=== PATIENT | female | born 1950 | race Caucasian/White ===

== ENCOUNTER 2017-05-30 13:43 | Emergency (ER) | payer MEDICARE, OTHER ==
[~2017-05-30] VITALS: Ht 134.6 cm; Wt 40.8 kg
[2017-05-30 14:02] VITALS: BP 141/61
--- NOTE | 2017-05-30 14:23 | EKG ---
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
--- NOTE | 2017-05-30 14:23 | RAD ---
EXAM: CT head without contrast. HISTORY: Multiple falls, dementia, Down syndrome. TECHNIQUE: Computed tomography of the head was performed without intravenous contrast. COMPARISON: None. FINDINGS: There is no intracranial hemorrhage. Hypoattenuation within the periventricular white matter indicates moderate chronic small vessel ischemic change. There is a chronic lacunar infarct in the left cerebellar hemisphere. Cerebral atrophy is moderate to severe with a temporal and parietal lobe predominant. The visualized paranasal sinuses appear clear. The orbits are unremarkable. The temporal bones are unremarkable. The calvarium reveals no suspicious lesions. IMPRESSION: 1. No acute intracranial findings. 2. Moderate to severe atrophy with the temporal and parietal lobe predominance. 3. Moderate chronic small vessel ischemic white matter change. *One or more of the following individualized dose reduction techniques were utilized for this examination: 1. Automated exposure control. 2. Adjustment of the mA and/or kV according to patient size. 3. Use of iterative reconstruction technique.
[2017-05-30] MEDS ORDERED: IV NORMAL SALINE 1000ML BAG 1,000 ML IV ONE (14:30)
[2017-05-30 14:38] LABS: BASO # 0.1 x10^3/uL (0.0-0.2); BASO % 1 % (0-3); EOS % 1 % (0-3); HEMATOCRIT 38.2 % (36.0-47.0); HEMOGLOBIN 12.6 g/dL (12.0-15.5); LYMPH # 1.3 x10^3/uL (1.0-4.8); LYMPH % 20 % (24-48); MEAN CORPUSCULAR HEMOGLOBIN 33 pg (25-35); MEAN CORPUSCULAR HGB CONC 33 g/dL (31-37); MEAN CORPUSCULAR VOLUME 99 fL (79-100); MONO % 7 % (0-9); NEUT % 70 % (31-73); PLATELET COUNT 175 x10^3/uL (140-400); RED BLOOD COUNT 3.86 x10^6/uL (3.50-5.40); WHITE BLOOD COUNT 6.6 x10^3/uL (4.0-11.0)
--- NOTE | 2017-05-30 15:01 | PHYS DOC ---
Past Medical History Past Medical History: Dementia, GERD, Hypothyroid Additional Past Medical Histor: downs syndrome, menieres, crohns, osteoporosis , gout, dysphagia, ckd Past Surgical History: No Surgical History Alcohol Use: None Drug Use: None Adult General Chief Complaint Chief Complaint: MECHANICAL FALL HPI HPI Patient is a 67 year old female who presents with multiple falls from prison. Pt has downs syndrome and unable to give history. Pt was reportedly hypotensive and bradycardic for EMS. This improved by the time the patient arrived to the ER. Patient is reportedly been falling multiple times in the prison, information on the falls is not available. Patient has some Mni re's disease listed as one of her primary diagnosis. Primary care physician is Dr. Rodriguez Review of Systems Review of Systems Unable to obtain due to mental abilities Current Medications Current Medications Current Medications Medications (Trade) Dose Ordered Sig/Jessee Start Time Stop Time Status Last Admin Dose Admin Ciprofloxacin (Cipro) 250 mg 1X ONCE 05/30/17 16:30 05/30/17 16:31 DC 05/30/17 16:23 250 MG Sodium Chloride 1,000 ml @ 1,000 mls/hr 1X ONCE 05/30/17 14:30 05/30/17 15:29 DC 05/30/17 14:33 1,000 MLS/HR Allergies Allergies Allergies Coded Allergies Type Severity Reaction Last Updated Verified Phenothiazines Allergy Intermediate 05/30/17 Yes lactose Allergy Intermediate 05/30/17 Yes Physical Exam Physical Exam Constitutional: small, HENT: Normocephalic, atraumatic, bilateral external ears normal, oropharynx slightly dry Eyes: PERRLA, disconguate gaze Neck: Normal range of motion, no tenderness, supple, no stridor. [] Cardiovascular:Heart rate regular with regular rhythm Lungs & Thorax: Bilateral breath sounds clear to auscultation [] Abdomen: Bowel sounds normal, soft, no tenderness, no masses, no pulsatile masses, pelvis stable Skin: Warm, dry, no erythema, no rash. [] Back: No tenderness, no CVA tenderness. [] Extremities: No tenderness, no cyanosis, no clubbing, ROM intact, no edema. inverted feet Neurologic: Alert , doesn't answer questions or follow commands well, normal motor function, no focal deficits noted. [] Current Patient Data Vital Signs Vital Signs Date Time Temp Pulse Resp B/P (MAP) Pulse Ox O2 Delivery O2 Flow Rate FiO2 05/30/17 14:02 97.9 57 20 141/61 (87) 97 Room Air 97.9 Lab Values Laboratory Tests Test 05/30/17 14:25 05/30/17 15:05 05/30/17 15:15 White Blood Count 6.6 x10^3/uL (4.0-11.0) Red Blood Count 3.86 x10^6/uL (3.50-5.40) Hemoglobin 12.6 g/dL (12.0-15.5) Hematocrit 38.2 % (36.0-47.0) Mean Corpuscular Volume 99 fL (79-100) Mean Corpuscular Hemoglobin 33 pg (25-35) Mean Corpuscular Hemoglobin Concent 33 g/dL (31-37) Red Cell Distribution Width 17.0 % (11.5-14.5) H Platelet Count 175 x10^3/uL (140-400) Neutrophils (%) (Auto) 70 % (31-73) Lymphocytes (%) (Auto) 20 % (24-48) L Monocytes (%) (Auto) 7 % (0-9) Eosinophils (%) (Auto) 1 % (0-3) Basophils (%) (Auto) 1 % (0-3) Neutrophils # (Auto) 4.6 x10^3uL (1.8-7.7) Lymphocytes # (Auto) 1.3 x10^3/uL (1.0-4.8) Monocytes # (Auto) 0.5 x10^3/uL (0.0-1.1) Eosinophils # (Auto) 0.1 x10^3/uL (0.0-0.7) Basophils # (Auto) 0.1 x10^3/uL (0.0-0.2) Lactic Acid Level 1.2 mmol/L (0.4-2.0) Thyroid Stimulating Hormone (TSH) 2.781 uIU/mL (0.358-3.74) Free Thyroxine 1.35 ng/dL (0.76-1.46) Sodium Level 143 mmol/L (136-145) Potassium Level 4.5 mmol/L (3.5-5.1) Chloride Level 106 mmol/L (98-107) Carbon Dioxide Level 30 mmol/L (21-32) Anion Gap 7 (6-14) Blood Urea Nitrogen 24 mg/dL (7-20) H Creatinine 1.8 mg/dL (0.6-1.0) H Estimated GFR (Cockcroft-Gault) 28.2 BUN/Creatinine Ratio 13 (6-20) Glucose Level 99 mg/dL (70-99) Calcium Level 9.3 mg/dL (8.5-10.1) Total Bilirubin 0.1 mg/dL (0.2-1.0) L Aspartate Amino Transferase (AST) 26 U/L (15-37) Alanine Aminotransferase (ALT) 13 U/L (14-59) L Alkaline Phosphatase 87 U/L (46-116) Total Protein 7.7 g/dL (6.4-8.2) Albumin 2.7 g/dL (3.4-5.0) L Albumin/Globulin Ratio 0.5 (1.0-1.7) L Urine Collection Type U cath Urine Color Yellow Urine Clarity Clear Urine pH 6.5 Urine Specific Dickens <=1.005 Urine Protein Negative mg/dL (NEG-TRACE) Urine Glucose (UA) Negative mg/dL (NEG) Urine Ketones (Stick) Negative mg/dL (NEG) Urine Blood Negative (NEG) Urine Nitrite Positive (NEG) Urine Bilirubin Negative (NEG) Urine Urobilinogen Dipstick 0.2 mg/dL (0.2 mg/dL) Urine Leukocyte Esterase Small (NEG) Urine RBC 0 /HPF (0-2) Urine WBC Occ /HPF (0-4) Urine Squamous Epithelial Cells Few /LPF Urine Bacteria Many /HPF (0-FEW) Laboratory Tests 05/30/17 14:25 Laboratory Tests 05/30/17 15:05 EKG EKG 61 beats per minute, sinus, normal axis, normal intervals, no ST elevation or depression appreciated, nonischemic T waves [] Radiology/Procedures Radiology/Procedures CT had: IMPRESSION: 1. No acute intracranial findings. 2. Moderate to severe atrophy with the temporal and parietal lobe predominance. 3. Moderate chronic small vessel ischemic white matter change. Course & Med Decision Making Course & Med Decision Making Pertinent Labs and Imaging studies reviewed. (See chart for details) Patient appeared in no acute distress. Lab work, urinalysis, CT head, EKG performed. She did yell out at staff for any interaction with her including when stickers were removed or placed, IV started, urinalysis obtained. Tolerated CT scan well No acute findings other than UTI. Pt given po cipro and I talked with Dr. Rodriguez , who accepted back to [place], pt dc'd with RX for cipro x 3 days. Dragon Disclaimer Dragon Disclaimer This electronic medical record was generated, in whole or in part, using a voice recognition dictation system. Departure Departure Impression: Primary Impression: Urinary tract infection Disposition: HOME, SELF-CARE Condition: STABLE Referrals: SHAISTA RODRIGUEZ MD (PCP) Scripts Ciprofloxacin Hcl (CIPRO) 250 Mg Tablet 1 TAB PO BID, #6 TAB Prov: FARZANEH LINDER MD 05/30/17 FARZANEH LINDER MD May 30, 2017 15:01
[2017-05-30 15:06] LABS: FREE T4 1.35 ng/dL (0.76-1.46)
[2017-05-30 15:16] LABS: CALCIUM 9.3 mg/dL (8.5-10.1); CREATININE 1.8 mg/dL (0.6-1.0); GFR 28.2; POTASSIUM 4.5 mmol/L (3.5-5.1)
[2017-05-30 15:24] LABS: ALBUMIN 2.7 g/dL (3.4-5.0); ALBUMIN/GLOBULIN RATIO 0.5 (1.0-1.7); TOTAL BILIRUBIN 0.1 mg/dL (0.2-1.0); TOTAL PROTEIN 7.7 g/dL (6.4-8.2)
[2017-05-30 15:36] LABS: BILIRUBIN,URINE NEGATIVE (NEG); GLUCOSE,URINE NEGATIVE (NEG); NITRITE,URINE POSITIVE (NEG); PH,URINE 6.5; PROTEIN,URINE NEGATIVE (NEG-TRACE); UROBILINOGEN,URINE 0.2 mg/dL (0.2 mg/dL)
[2017-05-30 15:51] LABS: BACTERIA,URINE MANY /HPF (0-FEW); RBC,URINE 0 /HPF (0-2); SQUAMOUS EPITHELIAL CELL,UR FEW /LPF; WBC,URINE OCC /HPF (0-4)
[2017-05-30] MEDS ORDERED: CIPR250T30 PO (16:09)
[2017-05-30] MEDS ORDERED: CIPROFLOXACIN HCL 250 MG TABLET. PO ONE (16:30)
== END 2017-05-30 16:40 | disposition home or self-care (01) ==
LOC: ER 13:43
DX: N39.0 Urinary tract infection, site not specified (principal); R29.6 Repeated falls; F03.90 Unspecified dementia, unspecified severity, without behavioral disturbance, psychotic disturbance, mood disturbance, and anxiety; E03.9 Hypothyroidism, unspecified; K21.9 Gastro-esophageal reflux disease without esophagitis; Q90.9 Down syndrome, unspecified; M81.0 Age-related osteoporosis without current pathological fracture; M10.9 Gout, unspecified; N18.9 Chronic kidney disease, unspecified; I95.9 Hypotension, unspecified; Z88.8 Allergy status to other drugs, medicaments and biological substances; Z91.011 Allergy to milk products; W18.39XA Other fall on same level, initial encounter; Y93.89 Activity, other specified; Y92.129 Unspecified place in nursing home as the place of occurrence of the external cause; Y99.8 Other external cause status
CPT/HCPCS: 36415; 70450; 80053; 81001; 83605; 84439; 84443; 85027; 87086; 93005; 96360; 96361; 99285; C1887; J7030; 87186

== ENCOUNTER 2017-06-29 09:46 | Inpatient (IN) | payer MEDICARE, OTHER ==
[~2017-06-29] VITALS: Ht 152.4 cm; Wt 42.2 kg
[2017-06-29] VITALS (15 sets, daily range): BP systolic 70–103; BP diastolic 40–57
[~2017-06-29 09:46] MED LIST: CIPR250T30 PO
[2017-06-29] MEDS ORDERED: IV NORMAL SALINE 1000ML BAG 1,000 ML IV SCH (10:00)
--- NOTE | 2017-06-29 10:20 | PHYS DOC ---
Past Medical History Past Medical History: Dementia, GERD, Hypothyroid Additional Past Medical Histor: downs syndrome, menieres, crohns, osteoporosis , gout, dysphagia, ckd Past Surgical History: No Surgical History Alcohol Use: None Drug Use: None Adult General Chief Complaint Chief Complaint: ALTERED MENTAL STATUS HPI HPI Patient is a 67 year old female who presents with oriented mental status. According to [facility] the last 2 days she's been in bed and not wanting to do much and then this morning was nonresponsive. EMS arrived and found her hypotensive and cold when they transferred her over she became more responsive. She has a past medical history of renal failure and Down syndrome. Review of Systems Review of Systems Unable to obtain Current Medications Current Medications Current Medications Medications (Trade) Dose Ordered Sig/Jessee Start Time Stop Time Status Last Admin Dose Admin Ondansetron HCl (Zofran) 4 mg PRN Q8HRS PRN 06/29/17 11:45 06/30/17 11:44 Sodium Chloride 1,000 ml @ 125 mls/hr Q8H 06/29/17 12:00 06/29/17 11:53 125 MLS/HR Allergies Allergies Allergies Coded Allergies Type Severity Reaction Last Updated Verified Phenothiazines Allergy Intermediate 05/30/17 Yes lactose Allergy Intermediate 05/30/17 Yes Physical Exam Physical Exam Constitutional: non-toxic appearance. [] HENT: Normocephalic, atraumatic, bilateral external ears normal, oropharynx moist, no oral exudates, nose normal. Dry oropharynx Eyes: PERRLA, EOMI, no discharge. [] Neck: Normal range of motion, no tenderness, no stridor. [] Cardiovascular:Heart rate regular rhythm, no murmur [] Lungs & Thorax: Bilateral breath sounds clear to auscultation [] Abdomen: Bowel sounds hypoactive, soft, no tenderness, no masses, no pulsatile masses. [] Skin: Warm, dry, no erythema, no rash. [] Back: No tenderness, no CVA tenderness. [] Extremities: No tenderness, no cyanosis, no clubbing, no edema. [] Neurologic: Alert. Current Patient Data Vital Signs Vital Signs Date Time Temp Pulse Resp B/P (MAP) Pulse Ox O2 Delivery O2 Flow Rate FiO2 06/29/17 10:36 98 26 77/58 (64) 100 06/29/17 09:46 97.7 Room Air 97.7 Lab Values Laboratory Tests Test 06/29/17 10:08 06/29/17 10:28 06/29/17 11:50 06/29/17 12:05 White Blood Count 13.1 x10^3/uL (4.0-11.0) H Red Blood Count 5.00 x10^6/uL (3.50-5.40) Hemoglobin 16.2 g/dL (12.0-15.5) H Hematocrit 51.4 % (36.0-47.0) H Mean Corpuscular Volume 103 fL (79-100) H Mean Corpuscular Hemoglobin 32 pg (25-35) Mean Corpuscular Hemoglobin Concent 32 g/dL (31-37) Red Cell Distribution Width 17.4 % (11.5-14.5) H Platelet Count 190 x10^3/uL (140-400) Neutrophils (%) (Auto) 77 % (31-73) H Lymphocytes (%) (Auto) 15 % (24-48) L Monocytes (%) (Auto) 4 % (0-9) Eosinophils (%) (Auto) 3 % (0-3) Basophils (%) (Auto) 1 % (0-3) Neutrophils # (Auto) 10.1 x10^3uL (1.8-7.7) H Lymphocytes # (Auto) 2.0 x10^3/uL (1.0-4.8) Monocytes # (Auto) 0.5 x10^3/uL (0.0-1.1) Eosinophils # (Auto) 0.4 x10^3/uL (0.0-0.7) Basophils # (Auto) 0.1 x10^3/uL (0.0-0.2) Prothrombin Time 13.7 SEC (11.7-14.0) Prothrombin Time INR 1.1 (0.8-1.1) Sodium Level 171 mmol/L (136-145) *H Potassium Level 5.1 mmol/L (3.5-5.1) Chloride Level 129 mmol/L (98-107) H Carbon Dioxide Level 29 mmol/L (21-32) Anion Gap 13 (6-14) Blood Urea Nitrogen 126 mg/dL (7-20) H Creatinine 5.7 mg/dL (0.6-1.0) H Estimated GFR (Cockcroft-Gault) 7.4 Glucose Level 105 mg/dL (70-99) H Lactic Acid Level 2.5 mmol/L (0.4-2.0) H Calcium Level 9.9 mg/dL (8.5-10.1) Magnesium Level 3.5 mg/dL (1.8-2.4) H Total Bilirubin 0.3 mg/dL (0.2-1.0) Direct Bilirubin 0.1 mg/dL (0.0-0.2) Aspartate Amino Transferase (AST) 38 U/L (15-37) H Alanine Aminotransferase (ALT) 49 U/L (14-59) Alkaline Phosphatase 140 U/L (46-116) H Creatine Kinase 97 U/L (26-192) Creatine Kinase MB (Mass) 1.3 ng/mL (0.0-3.6) Creatine Kinase MB Relative Index 1.3 % (0-4) Troponin I Quantitative < 0.017 ng/mL (0.000-0.055) KV-Dci-T-Type Natriuretic Peptide 2590 pg/mL (0-124) H Total Protein 9.6 g/dL (6.4-8.2) H Albumin 2.9 g/dL (3.4-5.0) L Lipase 252 U/L (73-393) Thyroid Stimulating Hormone (TSH) 1.071 uIU/mL (0.358-3.74) O2 Saturation 89 % (92-99) L Arterial Blood pH 7.41 (7.35-7.45) Arterial Blood pCO2 at Patient Temp 38 mmHg (35-46) Arterial Blood pO2 at Patient Temp 60 mmHg (65-108) L Arterial Blood HCO3 24 mmol/L (21-28) Arterial Blood Base Excess -1 mmol/L (-3-3) FiO2 21% Ammonia < 10 mcmol/L (11-34) L Urine Opiates Screen Neg (NEG) Urine Methadone Screen Neg (NEG) Urine Barbiturates Neg (NEG) Urine Phencyclidine Screen Neg (NEG) Urine Amphetamine/Methamphetamine Neg (NEG) Urine Benzodiazepines Screen Neg (NEG) Urine Cocaine Screen Neg (NEG) Urine Cannabinoids Screen Neg (NEG) Urine Ethyl Alcohol Neg (NEG) Laboratory Tests 06/29/17 10:08 Laboratory Tests 8/19/17 10:08 EKG EKG EKG shows sinus rhythm with a rate of [address] elevations or T- wave inversions appreciated, left axis deviation, QTC 474 ms, as interpreted by me. Radiology/Procedures Radiology/Procedures [place] [id number] IMAGING REPORT Signed PATIENT: VALERIY STOVER ACCOUNT: [id number] : 1950 LOCATION: ER AGE: 67 SEX: F EXAM STATUS: PRE ER ORD. PHYSICIAN: GREGORY MURILLO MD REASON: AMS PROCEDURE: PORTABLE CHEST 1V Indication: Altered mental status for 2 days. Technique: Supine portable chest radiograph was obtained. No comparison is available. Findings: The lungs are clear. The heart is not enlarged. The pulmonary vasculature appears prominent, likely accentuated by portable technique. Interstitium is not prominent. There is mild dextrocurvature. There is an old right rib fracture. Leads overlie the patient. Impression: Mild interstitial prominence likely related to portable technique. A mild vascular congestion cannot be completely excluded. DICTATED and SIGNED BY: KAI COLLINS MD DATE: 06/29/17 1054 CC: GREGORY MURILLO MD; MARIANN BELLE MD ~ [place] [id number] [place], [place] [id number] IMAGING REPORT Signed PATIENT: VALERIY STOVER ACCOUNT: [id number] : 1950 LOCATION: ER AGE: 67 SEX: F EXAM STATUS: PRE ER ORD. PHYSICIAN: GREGORY MURILLO MD REASON: AMS PROCEDURE: CT HEAD WO CONTRAST Indication: Altered mental status. Dementia, Down syndrome. Technique: Noncontrast CT head was obtained. Comparison is from May 30, 2017. One or more of the following individualized dose reduction techniques were utilized for this examination: 1. Automated exposure control 2. Adjustment of the mA and/or kV according to patient size 3. Use of iterative reconstruction technique Findings: Images were repeated for mild motion. There is prominence of the ventricles and sulci. The ventricles are more prominent than the sulci. Areas of decreased attenuation in the supratentorial white matter are nonspecific but most suggestive of minimal small vessel ischemic disease. There is no acute intracranial hemorrhage or extra-axial fluid collection. There is no mass effect or midline shift. There is probably an old left cerebellar infarct inferiorly. There is no CT evidence of an acute infarct. The included paranasal sinuses are clear. Mastoid air cells appear underpneumatized. There is probably cerumen in the left external auditory canal. Impression: 1. Ventricular prominence is out of proportion to the degree of sulcal prominence. This may still be related to parenchymal volume loss although normal pressure hydrocephalus also can be considered. 2. Probable small vessel ischemic disease. DICTATED and SIGNED BY: KAI COLLINS MD DATE: 06/29/17 1034 CC: GREGORY MURILLO MD; MARIANN BELLE MD ~ Impressions: Hypernatremia Acute renal failure Hypotension-improved Down syndrome Course & Med Decision Making Course & Med Decision Making Pertinent Labs and Imaging studies reviewed. (See chart for details) Patient presented with confusion that has improved with IV fluids. Her blood pressure has a map of greater than 65, chest x-ray CT head nonacute even though there are concerns of possible NPH with the CT of her head. She is severely dehydrated with hypernatremia. She is received 1 L of fluids and is improved in mentation. Spoke with Dr. Sanz who once 125 normal saline started. Patient's being admitted to Dr. Belle, with interim orders written for ICU placement. I discussed the plans with the patient's [id number] who states he has partial guardianship. She is in stable but critical condition this time be admitted ICU. Dragon Disclaimer Dragon Disclaimer This electronic medical record was generated, in whole or in part, using a voice recognition dictation system. Departure Departure Impression: Primary Impression: Hypernatremia Disposition: ADMITTED INPATIENT Admitting Physician: Mariann Belle Condition: STABLE Referrals: MARIANN BELLE MD (PCP) GREGORY MURILLO MD Jun 29, 2017 10:20
[2017-06-29 10:23] LABS: BASO # 0.1 x10^3/uL (0.0-0.2); BASO % 1 % (0-3); EOS % 3 % (0-3); HEMATOCRIT 51.4 % (36.0-47.0); HEMOGLOBIN 16.2 g/dL (12.0-15.5); LYMPH % 15 % (24-48); MEAN CORPUSCULAR HEMOGLOBIN 32 pg (25-35); MEAN CORPUSCULAR HGB CONC 32 g/dL (31-37); MEAN CORPUSCULAR VOLUME 103 fL (79-100); MONO % 4 % (0-9); NEUT % 77 % (31-73); PLATELET COUNT 190 x10^3/uL (140-400); RED CELL DISTRIBUTION WIDTH 17.4 % (11.5-14.5); WHITE BLOOD COUNT 13.1 x10^3/uL (4.0-11.0)
[2017-06-29 10:34] LABS: INR 1.1 (0.8-1.1); PROTHROMBIN TIME PATIENT 13.7 SEC (11.7-14.0)
--- NOTE | 2017-06-29 10:42 | RAD ---
Indication: Altered mental status. Dementia, Down syndrome. Technique: Noncontrast CT head was obtained. Comparison is from May 30, 2017. One or more of the following individualized dose reduction techniques were utilized for this examination: 1. Automated exposure control 2. Adjustment of the mA and/or kV according to patient size 3. Use of iterative reconstruction technique Findings: Images were repeated for mild motion. There is prominence of the ventricles and sulci. The ventricles are more prominent than the sulci. Areas of decreased attenuation in the supratentorial white matter are nonspecific but most suggestive of minimal small vessel ischemic disease. There is no acute intracranial hemorrhage or extra-axial fluid collection. There is no mass effect or midline shift. There is probably an old left cerebellar infarct inferiorly. There is no CT evidence of an acute infarct. The included paranasal sinuses are clear. Mastoid air cells appear underpneumatized. There is probably cerumen in the left external auditory canal. Impression: 1. Ventricular prominence is out of proportion to the degree of sulcal prominence. This may still be related to parenchymal volume loss although normal pressure hydrocephalus also can be considered. 2. Probable small vessel ischemic disease.
[2017-06-29 10:51] LABS: HCO3 ABG 24 mmol/L (21-28); PCO2 ABG 38 mmHg (35-46); PH ABG 7.41 (7.35-7.45); PO2 ABG 60 mmHg (65-108); SAT O2 ABG 89 % (92-99)
--- NOTE | 2017-06-29 10:59 | RAD ---
Indication: Altered mental status for 2 days. Technique: Supine portable chest radiograph was obtained. No comparison is available. Findings: The lungs are clear. The heart is not enlarged. The pulmonary vasculature appears prominent, likely accentuated by portable technique. Interstitium is not prominent. There is mild dextrocurvature. There is an old right rib fracture. Leads overlie the patient. Impression: Mild interstitial prominence likely related to portable technique. A mild vascular congestion cannot be completely excluded.
[2017-06-29 11:02] LABS: CKMB MASS 1.3 ng/mL (0.0-3.6)
[2017-06-29 11:11] LABS: ALBUMIN 2.9 g/dL (3.4-5.0); CALCIUM 9.9 mg/dL (8.5-10.1); CREATININE 5.7 mg/dL (0.6-1.0); DIRECT BILIRUBIN 0.1 mg/dL (0.0-0.2); GFR 7.4; MAGNESIUM 3.5 mg/dL (1.8-2.4); POTASSIUM 5.1 mmol/L (3.5-5.1); TOTAL BILIRUBIN 0.3 mg/dL (0.2-1.0); TOTAL PROTEIN 9.6 g/dL (6.4-8.2)
[2017-06-29] MEDS ORDERED: ONDANSETRON PF 4 MG/2 ML VIAL. IV PRN (11:45)
[2017-06-29] MEDS: IV NORMAL SALINE 1000ML BAG 1,000 ML IV SCH ×4 (11:53→14:47)
[2017-06-29] MEDS ORDERED: IV NORMAL SALINE 1000ML BAG 1,000 ML IV ONE (12:00)
--- NOTE | 2017-06-29 12:00 | EKG ---
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
[2017-06-29 12:25] LABS: BARBITURATES NEG (NEG); BENZODIAZEPINES NEG (NEG); CANNABINOIDS NEG (NEG); COCAINE NEG (NEG); METHADONE NEG (NEG); OPIATES NEG (NEG); PHENCYCLIDINE NEG (NEG)
[2017-06-29 12:31] LABS: FIO2 ABG 21%
[2017-06-29 12:32] LABS: BILIRUBIN,URINE NEGATIVE (NEG); GLUCOSE,URINE NEGATIVE (NEG); NITRITE,URINE POSITIVE (NEG); PH,URINE 5.5; PROTEIN,URINE 30 mg/dL (NEG-TRACE); UROBILINOGEN,URINE 0.2 mg/dL (0.2 mg/dL)
[2017-06-29 12:48] LABS: BACTERIA,URINE MOD /HPF (0-FEW); RBC,URINE 0 /HPF (0-2); SQUAMOUS EPITHELIAL CELL,UR MOD /LPF; WBC,URINE TNTC /HPF (0-4)
--- NOTE | 2017-06-29 13:48 | PDOC2 ---
CONSULT Date of Consult Date of Consult DATE: 06/29/17 TIME: 13:37 Reason for Consult Reason for Consult: GLORY and ^Na Referring Physician Referring Physician: Dr Belle Identification/Chief Complaint Chief Complaint AMS Problems: Source Source: Chart review, Patient History of Present Illness Reason for Visit: as dictated Social History No ALCOHOL: none Drugs: None Lives: Shelter Current Problem List Problem List Problems Medical Problems: (1) Hypernatremia Status: Acute Current Medications Current Medications Current Medications Sodium Chloride 1,000 ml @ 1,000 mls/hr Q1H IV Last administered on 06/29/17 09:55; Start 06/29/17 at 10:00; Stop 06/29/17 at 10:59; Status DC Sodium Chloride 1,000 ml @ 1,000 mls/hr 1X ONCE IV ; Start 06/29/17 at 12:00; Stop 06/29/17 at 12:59; Status Cancel Sodium Chloride 1,000 ml @ 125 mls/hr Q8H IV Last administered on 06/29/17 11 :53; Start 06/29/17 at 12:00 Ondansetron HCl (Zofran) 4 mg PRN Q8HRS PRN IV NAUSEA/VOMITING; Start 06/29/17 at 11:45; Stop 06/30/17 at 11:44 Active Scripts Active Cipro (Ciprofloxacin Hcl) 250 Mg Tablet 1 Tab PO BID Allergies Allergies: Coded Allergies: Phenothiazines (Verified Allergy, Intermediate, 05/30/17) lactose (Verified Allergy, Intermediate, 05/30/17) ROS Review of System Pt has Down's synd, and is encephalphathic - I am unable to get ROS from her Physical Exam Physical Exam General Appearance: barely Awake not Alert Oriented x 0 In no Distress; Downs Syndrome pt Eyes: VIsion Unchanged Conjunctiva Normal EN: No EN Drainage Mucous Memb. dry! Neck: no JVD no JVP Supple no Thyromegaly CVS: S1 S2 + Murmur No Gallop No Rub no Edema Resp: no Rales no Rhonchi no Acc. Muscle use GI: BAS +ve NO Bruit Non Tender Non Distended : no CVA tenderness; ? Suprapubic Tenderness SKIN: no visible Rashes Breast Exam deferred Mu.Sk: Adequate passive ROM min Muscle Atrophy Heme: Unable to palpate Obvious LAD no palp Splenomegaly NEURO: unable to assess due to AMS no asterixis Psych: ? Depressed vs Ill appearring Vital Signs Vital Signs Date Time Temp Pulse Resp B/P (MAP) Pulse Ox O2 Delivery O2 Flow Rate FiO2 06/29/17 12:30 94 19 78/51 (60) 98 06/29/17 09:46 97.7 Room Air 97.7 Assessment & Plan GLORY/ ATN - Pyelo nephritis - Current FLuid and E-lyte status does not necessitate emergent need for Dialysis. Will re-evaluate in am after adequate hydration ^Na - Isotonic IVF for now for sepsis Sepsis - Urine source - Abx as ordered, IVF per protocol Pyelonephritis - IV ABX and IVF as ordered Min ^ed Lactic Acid - Sepsis HypoTN: sepsis vs Vol dpeltion - IVF for now ^ed HGb - suspect due to Hemoconcentration Vol dpeltion - IVF as ordered Labs Labs Laboratory Tests Test 06/29/17 10:08 06/29/17 10:28 06/29/17 11:50 06/29/17 12:05 White Blood Count 13.1 x10^3/uL (4.0-11.0) Red Blood Count 5.00 x10^6/uL (3.50-5.40) Hemoglobin 16.2 g/dL (12.0-15.5) Hematocrit 51.4 % (36.0-47.0) Mean Corpuscular Volume 103 fL (79-100) Mean Corpuscular Hemoglobin 32 pg (25-35) Mean Corpuscular Hemoglobin Concent 32 g/dL (31-37) Red Cell Distribution Width 17.4 % (11.5-14.5) Platelet Count 190 x10^3/uL (140-400) Neutrophils (%) (Auto) 77 % (31-73) Lymphocytes (%) (Auto) 15 % (24-48) Monocytes (%) (Auto) 4 % (0-9) Eosinophils (%) (Auto) 3 % (0-3) Basophils (%) (Auto) 1 % (0-3) Neutrophils # (Auto) 10.1 x10^3uL (1.8-7.7) Lymphocytes # (Auto) 2.0 x10^3/uL (1.0-4.8) Monocytes # (Auto) 0.5 x10^3/uL (0.0-1.1) Eosinophils # (Auto) 0.4 x10^3/uL (0.0-0.7) Basophils # (Auto) 0.1 x10^3/uL (0.0-0.2) Prothrombin Time 13.7 SEC (11.7-14.0) Prothromb Time International Ratio 1.1 (0.8-1.1) Sodium Level 171 mmol/L (136-145) Potassium Level 5.1 mmol/L (3.5-5.1) Chloride Level 129 mmol/L (98-107) Carbon Dioxide Level 29 mmol/L (21-32) Anion Gap 13 (6-14) Blood Urea Nitrogen 126 mg/dL (7-20) Creatinine 5.7 mg/dL (0.6-1.0) Estimated GFR (Cockcroft-Gault) 7.4 Glucose Level 105 mg/dL (70-99) Lactic Acid Level 2.5 mmol/L (0.4-2.0) Calcium Level 9.9 mg/dL (8.5-10.1) Magnesium Level 3.5 mg/dL (1.8-2.4) Total Bilirubin 0.3 mg/dL (0.2-1.0) Direct Bilirubin 0.1 mg/dL (0.0-0.2) Aspartate Amino Transf (AST/SGOT) 38 U/L (15-37) Alanine Aminotransferase (ALT/SGPT) 49 U/L (14-59) Alkaline Phosphatase 140 U/L (46-116) Creatine Kinase 97 U/L (26-192) Creatine Kinase MB (Mass) 1.3 ng/mL (0.0-3.6) Creatine Kinase MB Relative Index 1.3 % (0-4) Troponin I Quantitative < 0.017 ng/mL (0.000-0.055) FG-Mtm-S-Type Natriuretic Peptide 2590 pg/mL (0-124) Total Protein 9.6 g/dL (6.4-8.2) Albumin 2.9 g/dL (3.4-5.0) Lipase 252 U/L (73-393) Thyroid Stimulating Hormone (TSH) 1.071 uIU/mL (0.358-3.74) O2 Saturation 89 % (92-99) Arterial Blood pH 7.41 (7.35-7.45) Arterial Blood pCO2 at Patient Temp 38 mmHg (35-46) Arterial Blood pO2 at Patient Temp 60 mmHg (65-108) Arterial Blood HCO3 24 mmol/L (21-28) Arterial Blood Base Excess -1 mmol/L (-3-3) FiO2 21% Ammonia < 10 mcmol/L (11-34) Urine Collection Type U cath Urine Color Yellow Urine Clarity Cloudy Urine pH 5.5 Urine Specific [place] 1.015 Urine Protein 30 mg/dL (NEG-TRACE) Urine Glucose (UA) Negative mg/dL (NEG) Urine Ketones (Stick) Negative mg/dL (NEG) Urine Blood Small (NEG) Urine Nitrite Positive (NEG) Urine Bilirubin Negative (NEG) Urine Urobilinogen Dipstick 0.2 mg/dL (0.2 mg/dL) Urine Leukocyte Esterase Large (NEG) Urine RBC 0 /HPF (0-2) Urine WBC Tntc /HPF (0-4) Urine Squamous Epithelial Cells Mod /LPF Urine Bacteria Mod /HPF (0-FEW) Urine Hyaline Casts Moderate /HPF Urine Opiates Screen Neg (NEG) Urine Methadone Screen Neg (NEG) Urine Barbiturates Neg (NEG) Urine Phencyclidine Screen Neg (NEG) Urine Amphetamine/Methamphetamine Neg (NEG) Urine Benzodiazepines Screen Neg (NEG) Urine Cocaine Screen Neg (NEG) Urine Cannabinoids Screen Neg (NEG) Urine Ethyl Alcohol Neg (NEG) Laboratory Tests Test 06/29/17 10:08 06/29/17 10:28 06/29/17 11:50 06/29/17 12:05 White Blood Count 13.1 x10^3/uL (4.0-11.0) Red Blood Count 5.00 x10^6/uL (3.50-5.40) Hemoglobin 16.2 g/dL (12.0-15.5) Hematocrit 51.4 % (36.0-47.0) Mean Corpuscular Volume 103 fL (79-100) Mean Corpuscular Hemoglobin 32 pg (25-35) Mean Corpuscular Hemoglobin Concent 32 g/dL (31-37) Red Cell Distribution Width 17.4 % (11.5-14.5) Platelet Count 190 x10^3/uL (140-400) Neutrophils (%) (Auto) 77 % (31-73) Lymphocytes (%) (Auto) 15 % (24-48) Monocytes (%) (Auto) 4 % (0-9) Eosinophils (%) (Auto) 3 % (0-3) Basophils (%) (Auto) 1 % (0-3) Neutrophils # (Auto) 10.1 x10^3uL (1.8-7.7) Lymphocytes # (Auto) 2.0 x10^3/uL (1.0-4.8) Monocytes # (Auto) 0.5 x10^3/uL (0.0-1.1) Eosinophils # (Auto) 0.4 x10^3/uL (0.0-0.7) Basophils # (Auto) 0.1 x10^3/uL (0.0-0.2) Prothrombin Time 13.7 SEC (11.7-14.0) Prothromb Time International Ratio 1.1 (0.8-1.1) Sodium Level 171 mmol/L (136-145) Potassium Level 5.1 mmol/L (3.5-5.1) Chloride Level 129 mmol/L (98-107) Carbon Dioxide Level 29 mmol/L (21-32) Anion Gap 13 (6-14) Blood Urea Nitrogen 126 mg/dL (7-20) Creatinine 5.7 mg/dL (0.6-1.0) Estimated GFR (Cockcroft-Gault) 7.4 Glucose Level 105 mg/dL (70-99) Lactic Acid Level 2.5 mmol/L (0.4-2.0) Calcium Level 9.9 mg/dL (8.5-10.1) Magnesium Level 3.5 mg/dL (1.8-2.4) Total Bilirubin 0.3 mg/dL (0.2-1.0) Direct Bilirubin 0.1 mg/dL (0.0-0.2) Aspartate Amino Transf (AST/SGOT) 38 U/L (15-37) Alanine Aminotransferase (ALT/SGPT) 49 U/L (14-59) Alkaline Phosphatase 140 U/L (46-116) Creatine Kinase 97 U/L (26-192) Creatine Kinase MB (Mass) 1.3 ng/mL (0.0-3.6) Creatine Kinase MB Relative Index 1.3 % (0-4) Troponin I Quantitative < 0.017 ng/mL (0.000-0.055) NX-Xqe-I-Type Natriuretic Peptide 2590 pg/mL (0-124) Total Protein 9.6 g/dL (6.4-8.2) Albumin 2.9 g/dL (3.4-5.0) Lipase 252 U/L (73-393) Thyroid Stimulating Hormone (TSH) 1.071 uIU/mL (0.358-3.74) O2 Saturation 89 % (92-99) Arterial Blood pH 7.41 (7.35-7.45) Arterial Blood pCO2 at Patient Temp 38 mmHg (35-46) Arterial Blood pO2 at Patient Temp 60 mmHg (65-108) Arterial Blood HCO3 24 mmol/L (21-28) Arterial Blood Base Excess -1 mmol/L (-3-3) FiO2 21% Ammonia < 10 mcmol/L (11-34) Urine Collection Type U cath Urine Color Yellow Urine Clarity Cloudy Urine pH 5.5 Urine Specific [place] 1.015 Urine Protein 30 mg/dL (NEG-TRACE) Urine Glucose (UA) Negative mg/dL (NEG) Urine Ketones (Stick) Negative mg/dL (NEG) Urine Blood Small (NEG) Urine Nitrite Positive (NEG) Urine Bilirubin Negative (NEG) Urine Urobilinogen Dipstick 0.2 mg/dL (0.2 mg/dL) Urine Leukocyte Esterase Large (NEG) Urine RBC 0 /HPF (0-2) Urine WBC Tntc /HPF (0-4) Urine Squamous Epithelial Cells Mod /LPF Urine Bacteria Mod /HPF (0-FEW) Urine Hyaline Casts Moderate /HPF Urine Opiates Screen Neg (NEG) Urine Methadone Screen Neg (NEG) Urine Barbiturates Neg (NEG) Urine Phencyclidine Screen Neg (NEG) Urine Amphetamine/Methamphetamine Neg (NEG) Urine Benzodiazepines Screen Neg (NEG) Urine Cocaine Screen Neg (NEG) Urine Cannabinoids Screen Neg (NEG) Urine Ethyl Alcohol Neg (NEG) LEWIS DUPONT MD Jun 29, 2017 13:48
[2017-06-29] MEDS ORDERED: MAGNESIUM SULFATE 2GM 50 ML IV PRN (14:00)
[2017-06-29] MEDS ORDERED: IV NORMAL SALINE 500ML BAG 500 ML IV PRN (15:00)
--- NOTE | 2017-06-29 16:00 | RAD ---
Indication: Chronic kidney disease. Dehydration. Down syndrome and Alzheimer's dementia. Technique: Renal ultrasound was performed. Exam was technically difficult, patient is not compliant. There is also poor acoustic window given body habitus. Findings: Right kidney measures at least 6.2 cm in length and the left 5.1 cm. Renal cortical echogenicity is increased. No discrete lesion is identified and there is no hydronephrosis apparent. Bladder is not evaluated secondary to Willis catheter. Impression: Atrophic kidneys with increased cortical echogenicity, nonspecific but can be a finding of medical renal disease.
[2017-06-29] MEDS: NOREPINEPHRIN PREMIX 250 ML IV PRN (16:34)
[2017-06-29] MEDS ORDERED: LORA0.5T96 PO (17:06)
[2017-06-29] MEDS ORDERED: BISA10SU13 RC (17:06)
[2017-06-29] MEDS ORDERED: ALLO100T PO (17:06)
[2017-06-29] MEDS ORDERED: POLY17PO29 PO (17:06)
[2017-06-29] MEDS ORDERED: QUET25TA5 PO (17:06)
[2017-06-29] MEDS ORDERED: POTA20TA82 PO (17:06)
[2017-06-29] MEDS ORDERED: ALEN70TA5 PO (17:06)
[2017-06-29] MEDS ORDERED: BUSP5TAB PO (17:06)
[2017-06-29] MEDS ORDERED: ASPI-482 PO ×2 (17:06)
[2017-06-29] MEDS ORDERED: DONE5TAB7 PO (17:06)
[2017-06-29] MEDS ORDERED: LEVO75TA5 PO (17:06)
[2017-06-29] MEDS ORDERED: FURO-69 PO (17:06)
[2017-06-29] MEDS ORDERED: CALC-98 PO (17:06)
[2017-06-29] MEDS ORDERED: NYST15PO9 TP (17:06)
[2017-06-29] MEDS ORDERED: LORA10TA3 PO (17:06)
[2017-06-29] MEDS ORDERED: OMEP40CA5 PO (17:06)
[2017-06-29] MEDS ORDERED: QUET50TA5 PO (17:06)
[2017-06-29] MEDS ORDERED: MELA3TAB2 PO (17:06)
[2017-06-29] MEDS: IV 1/2 NORMAL SALINE 1,000 ML IV SCH ×2 (18:34→18:35)
[2017-06-29] MEDS: PIPERACILLIN/TAZOBACTAM 2.25 GM in IV NORMAL SALINE 50ML 50 ML IV SCH (19:34)
--- NOTE | 2017-06-29 22:57 | CONS ---
DATE OF CONSULTATION: HISTORY OF PRESENT ILLNESS: The patient is a pleasant 67-year-old female with history of Down syndrome. She apparently is also noted to have some underlying CKD. Her sister used to care for her; however, her sister , and she is now in at ____ [facility]. She was found to have ____ with worsening mental status and was transferred here. When EMS was brought, she was reportedly hypothermic also. IV fluids were given, and she has been warmed up ____ she has relatively normal temperatures at this time. She remains hypotensive. She currently is minimally responsive and encephalopathic, unable to provide much in terms of history. PAST MEDICAL HISTORY: Significant for dementia, GERD, hypothyroidism, Down syndrome, Meniere's, Crohn's disease, osteoporosis, gout, dysphagia and possible chronic kidney disease. FAMILY HISTORY: Unable to be obtained from the patient. SOCIAL HISTORY: Lives in a fdc. As documented in the ER note, she is a nonsmoker and nondrinker. For rest of details, see electronic records. LEWIS DUPONT MD DR: BLAINE/nguyen JOB#: [id number] / [id number]
[2017-06-30] VITALS (26 sets, daily range): BP systolic 75–115; BP diastolic 41–64
--- NOTE | 2017-06-30 03:28 | ACF ---
Admission Forms Criteria HYPONATREMIA; HYPERNATREMIA; HYPOKALEMIA; HYPERKALEMIA; HYPOCALCEMIA; HYPERCALCEMIA Clinical Indications for Inpatient Care (Place 'X' for any and all applicable criteria): Ongoing inpatient care may be indicated for ANY ONE of the following [G](1)(2)(3 )(5): [X ]I. Hyponatremia with ANY ONE of the following: [ X]a) Sodium less than 130 mEq/L (mmol/L) (new) (6)(22) [X ]b) Sodium less than 135 mEq/L (mmol/L) with ANY ONE of the following: [ X]i) Severe medical etiology requiring inpatient management (eg, heart failure, hypovolemia) [ ]ii) Altered mental status [ ]iii) Seizures [ ]II. Hypernatremia with ANY ONE of the following: [ ]a) Sodium greater than 155 mEq/L (mmol/L) [ ]b) Sodium greater than 150 mEq/L (mmol/L) with ANY ONE of the following: [ ] i) Altered mental status [ ]ii) Seizures [ ]iii) Severe medical etiology (eg, hypovolemia, diabetes insipidus) [ ]iv) Severe weakness [ ]v) Severe medical etiology (eg, hemolysis, infection, drug overdose) [ ]III. Hypokalemia with ANY ONE of the following: [ ]a) Potassium less than 2.5 mEq/L (mmol/L) despite outpatient and emergency treatment [ ]b) Potassium less than 3.0 mEq/L (mmol/L) with ANY ONE of the following: [ ]i) Weakness [ ]ii) Cardiac abnormality (eg, arrhythmia, conduction disturbance) [ ]iii) Cardiac ischemia [ ]iv) Ileus [ ]v) Ongoing medical cause requiring inpatient management. ( e.g., acute renal wasting, SIADH) [ ]vi) Other severe symptoms [ ] IV. Hyperkalemia with ANY ONE of the following: [ ]a) Potassium greater than 6.5 mEq/L (mmol/L) [ ]b) Potassium greater than 5 mEq/L (mmol/L) with ANY ONE of the following: [ ]i) Severe ECG findings [H] [ ]ii) Acute worsening of renal failure (creatinine greater than 2.5 mg/dL (221 micromoles/L) or significant elevation for age and size) [ ] V. Hypocalcemia with ANY ONE of the following: [ ]a) Calcium less than 7 mg/dL (1.75 mmol/L) despite outpatient and emergency treatment(19) [ ]b) Calcium less than 8 mg/dL (2 mmol/L) with significant symptoms or findings; examples include: [ ]i) Cardiac abnormality (eg, arrhythmia or conduction disturbance) [ ]ii) Altered mental status [ ]iii) Seizures [ ]iv) Breathing difficulty [ ]v) Muscle spasms [ ]. Hypercalcemia with ANY ONE of the following: [ ]a) Calcium greater than 14 mg/dL (3.5 mmol/L) [ ]b) Calcium greater than 12 mg/dL (3 mmol/L) with ANY ONE of the following: [ ]i) Significant dehydration or hypovolemia as indicated by ANY ONE of the following(2): [ ]1. Clinically significant dehydration as indicated by ANY ONE of the following: [ ]A. Acute loss of weight from baseline (5% of body weight in adults, 9% in pediatric patients) [ ]B. Hemodynamic instability [ ]C. Acute renal failure [ ]D. Serum sodium greater than 150 mEq/L (mmol/L) [ ]2) Dehydration that is persistent indicated by ALL of the following: [ ]A. Oral rehydration therapy not tolerated or insufficient to adequately correct dehydration [ ]B. Appropriate intravenous treatment (eg, fluids ) does not readily correct dehydration ie, after 12 to 24 hours of treatment) [ ]ii) Significant symptoms or findings; examples include: [ ]1) Altered mental status [ ]2) Cardiac abnormality (eg, arrhythmia, conduction disturbance) [ ]3) Cardiac abnormality (eg, arrhythmia, conduction disturbance) The original [facility] content created by [facility] has been revised. The portions of the content which have been revised are identified through the use of italic text or in bold, and [facility] has neither reviewed nor approved the modified material. All other unmodified content is copyright [facility] [employer] Please see references footnoted in the original [facility] [employer] edition 2016 Admission Criteria Met?: Yes JANICE PRINCE Jun 30, 2017 03:28
[2017-06-30] MEDS: IV 1/2 NORMAL SALINE 1,000 ML IV SCH ×2 (03:29→19:07)
[2017-06-30] MEDS: PIPERACILLIN/TAZOBACTAM 2.25 GM in IV NORMAL SALINE 50ML 50 ML IV SCH ×3 (05:39→21:56)
[2017-06-30 06:27] LABS: BASO # 0.2 x10^3/uL (0.0-0.2); BASO % 1 % (0-3); EOS % 3 % (0-3); HEMATOCRIT 47.6 % (36.0-47.0); LYMPH # 1.6 x10^3/uL (1.0-4.8); LYMPH % 9 % (24-48); MEAN CORPUSCULAR HEMOGLOBIN 33 pg (25-35); MEAN CORPUSCULAR HGB CONC 31 g/dL (31-37); MEAN CORPUSCULAR VOLUME 104 fL (79-100); MONO % 4 % (0-9); NEUT % 83 % (31-73); PLATELET COUNT 92 x10^3/uL (140-400); RED BLOOD COUNT 4.57 x10^6/uL (3.50-5.40); RED CELL DISTRIBUTION WIDTH 18.1 % (11.5-14.5); WHITE BLOOD COUNT 18.6 x10^3/uL (4.0-11.0)
[2017-06-30 06:57] LABS: CREATININE 4.3 mg/dL (0.6-1.0); GFR 10.3; PHOSPHORUS 5.1 mg/dL (2.6-4.7); POTASSIUM 4.4 mmol/L (3.5-5.1)
[2017-06-30 07:09] LABS: CALCIUM 7.7 mg/dL (8.5-10.1)
--- NOTE | 2017-06-30 08:11 | PDOC ---
SUBJECTIVE ROS GLORY/ CKD III/ IV Unable to provide ROS OBJECTIVE Vital Signs Vital Signs Date Time Temp Pulse Resp B/P (MAP) Pulse Ox O2 Delivery O2 Flow Rate FiO2 06/30/17 07:00 87 18 90/47 (61) 96 Room Air 06/30/17 04:00 97.3 97.3 06/29/17 17:00 2.0 I & 0 Intake and Output 06/30/17 07:00 Intake Total 4144.2 ml Output Total 729 ml Balance 3415.2 ml Intake IV Total 4144.2 ml Output Urine Total 729 ml PHYSICAL EXAM Physical Exam General Appearance: barely Awake not Alert Oriented x 0 In no Distress; Downs Syndrome pt Eyes: VIsion Unchanged Conjunctiva Normal EN: No EN Drainage Mucous Memb. dry! Neck: no JVD no JVP Supple no Thyromegaly CVS: S1 S2 + Murmur No Gallop No Rub no Edema Resp: no Rales no Rhonchi no Acc. Muscle use GI: BS hypoactive NO Bruit Non Tender Non Distended : no CVA tenderness; ? Suprapubic Tenderness SKIN: no visible Rashes Breast Exam deferred Mu.Sk: Adequate passive ROM min Muscle Atrophy Heme: Unable to palpate Obvious LAD no palp Splenomegaly NEURO: unable to assess due to AMS no asterixis Psych: ? Depressed vs Ill appearring Assessment & Plan: GLORY/ ATN - Pyelo nephritis - Current FLuid and E-lyte status does not necessitate emergent need for Dialysis. Will re-evaluate in am after adequate hydration. ? Candidate for HD if needed? CKD IV/ V - baseline NA from NH - smallish Kidneys on US do suggest some level of CKD AMS - suspect sepsis >> Uremia - await resolution of same ^Na - hypotonic IVF for now - gradually improving Sepsis - Urine source - Abx as ordered, IVF per protocol Pyelonephritis - IV ABX and IVF as ordered Min ^ed Lactic Acid - Sepsis HypoTN: sepsis vs Vol dpeltion - IVF for now ^ed HGb - suspect due to Hemoconcentration Vol dpeltion - IVF as ordered COMMENT/RELEVANT DATA Meds Current Medications Medications (Trade) Dose Ordered Sig/Jessee Start Time Stop Time Status Last Admin Dose Admin Magnesium Sulfate/ Dextrose 50 ml @ 25 mls/hr PRN DAILY PRN 06/29/17 14:00 Norepinephrine Bitartrate 250 ml @ 0 mls/hr CONT PRN 06/29/17 13:45 06/29/17 16:34 9.4 MLS/HR Ondansetron HCl (Zofran) 4 mg PRN Q8HRS PRN 06/29/17 11:45 06/30/17 11:44 Piperacillin Sod/ Tazobactam Sod 2.25 gm/Sodium Chloride 50 ml @ 100 mls/hr Q8HRS 06/29/17 19:30 06/30/17 05:39 100 MLS/HR Sodium Chloride 1,000 ml @ 125 mls/hr Q8H 06/29/17 19:00 06/30/17 03:29 125 MLS/HR Lab Laboratory Tests Test 06/29/17 10:08 06/29/17 10:28 06/29/17 11:50 06/29/17 12:05 White Blood Count 13.1 x10^3/uL (4.0-11.0) Red Blood Count 5.00 x10^6/uL (3.50-5.40) Hemoglobin 16.2 g/dL (12.0-15.5) Hematocrit 51.4 % (36.0-47.0) Mean Corpuscular Volume 103 fL (79-100) Mean Corpuscular Hemoglobin 32 pg (25-35) Mean Corpuscular Hemoglobin Concent 32 g/dL (31-37) Red Cell Distribution Width 17.4 % (11.5-14.5) Platelet Count 190 x10^3/uL (140-400) Neutrophils (%) (Auto) 77 % (31-73) Lymphocytes (%) (Auto) 15 % (24-48) Monocytes (%) (Auto) 4 % (0-9) Eosinophils (%) (Auto) 3 % (0-3) Basophils (%) (Auto) 1 % (0-3) Neutrophils # (Auto) 10.1 x10^3uL (1.8-7.7) Lymphocytes # (Auto) 2.0 x10^3/uL (1.0-4.8) Monocytes # (Auto) 0.5 x10^3/uL (0.0-1.1) Eosinophils # (Auto) 0.4 x10^3/uL (0.0-0.7) Basophils # (Auto) 0.1 x10^3/uL (0.0-0.2) Prothrombin Time 13.7 SEC (11.7-14.0) Prothromb Time International Ratio 1.1 (0.8-1.1) Sodium Level 171 mmol/L (136-145) Potassium Level 5.1 mmol/L (3.5-5.1) Chloride Level 129 mmol/L (98-107) Carbon Dioxide Level 29 mmol/L (21-32) Anion Gap 13 (6-14) Blood Urea Nitrogen 126 mg/dL (7-20) Creatinine 5.7 mg/dL (0.6-1.0) Estimated GFR (Cockcroft-Gault) 7.4 Glucose Level 105 mg/dL (70-99) Lactic Acid Level 2.5 mmol/L (0.4-2.0) Calcium Level 9.9 mg/dL (8.5-10.1) Magnesium Level 3.5 mg/dL (1.8-2.4) Total Bilirubin 0.3 mg/dL (0.2-1.0) Direct Bilirubin 0.1 mg/dL (0.0-0.2) Aspartate Amino Transf (AST/SGOT) 38 U/L (15-37) Alanine Aminotransferase (ALT/SGPT) 49 U/L (14-59) Alkaline Phosphatase 140 U/L (46-116) Creatine Kinase 97 U/L (26-192) Creatine Kinase MB (Mass) 1.3 ng/mL (0.0-3.6) Creatine Kinase MB Relative Index 1.3 % (0-4) Troponin I Quantitative < 0.017 ng/mL (0.000-0.055) BT-Cqy-D-Type Natriuretic Peptide 2590 pg/mL (0-124) Total Protein 9.6 g/dL (6.4-8.2) Albumin 2.9 g/dL (3.4-5.0) Lipase 252 U/L (73-393) Thyroid Stimulating Hormone (TSH) 1.071 uIU/mL (0.358-3.74) O2 Saturation 89 % (92-99) Arterial Blood pH 7.41 (7.35-7.45) Arterial Blood pCO2 at Patient Temp 38 mmHg (35-46) Arterial Blood pO2 at Patient Temp 60 mmHg (65-108) Arterial Blood HCO3 24 mmol/L (21-28) Arterial Blood Base Excess -1 mmol/L (-3-3) FiO2 21% Ammonia < 10 mcmol/L (11-34) Urine Collection Type U cath Urine Color Yellow Urine Clarity Cloudy Urine pH 5.5 Urine Specific [place] 1.015 Urine Protein 30 mg/dL (NEG-TRACE) Urine Glucose (UA) Negative mg/dL (NEG) Urine Ketones (Stick) Negative mg/dL (NEG) Urine Blood Small (NEG) Urine Nitrite Positive (NEG) Urine Bilirubin Negative (NEG) Urine Urobilinogen Dipstick 0.2 mg/dL (0.2 mg/dL) Urine Leukocyte Esterase Large (NEG) Urine RBC 0 /HPF (0-2) Urine WBC Tntc /HPF (0-4) Urine Squamous Epithelial Cells Mod /LPF Urine Bacteria Mod /HPF (0-FEW) Urine Hyaline Casts Moderate /HPF Urine Opiates Screen Neg (NEG) Urine Methadone Screen Neg (NEG) Urine Barbiturates Neg (NEG) Urine Phencyclidine Screen Neg (NEG) Urine Amphetamine/Methamphetamine Neg (NEG) Urine Benzodiazepines Screen Neg (NEG) Urine Cocaine Screen Neg (NEG) Urine Cannabinoids Screen Neg (NEG) Urine Ethyl Alcohol Neg (NEG) Test 06/29/17 13:30 06/29/17 14:08 06/29/17 17:50 06/30/17 00:01 Nasal Screen MRSA (PCR) Negative (Negative) Lactic Acid Level 1.7 mmol/L (0.4-2.0) Creatine Kinase 70 U/L (26-192) Procalcitonin 0.32 ng/mL (0.00-0.10) Sodium Level 170 mmol/L (136-145) 169 mmol/L (136-145) Test 06/30/17 06:00 White Blood Count 18.6 x10^3/uL (4.0-11.0) Red Blood Count 4.57 x10^6/uL (3.50-5.40) Hemoglobin 15.0 g/dL (12.0-15.5) Hematocrit 47.6 % (36.0-47.0) Mean Corpuscular Volume 104 fL (79-100) Mean Corpuscular Hemoglobin 33 pg (25-35) Mean Corpuscular Hemoglobin Concent 31 g/dL (31-37) Red Cell Distribution Width 18.1 % (11.5-14.5) Platelet Count 92 x10^3/uL (140-400) Neutrophils (%) (Auto) 83 % (31-73) Lymphocytes (%) (Auto) 9 % (24-48) Monocytes (%) (Auto) 4 % (0-9) Eosinophils (%) (Auto) 3 % (0-3) Basophils (%) (Auto) 1 % (0-3) Neutrophils # (Auto) 15.5 x10^3uL (1.8-7.7) Lymphocytes # (Auto) 1.6 x10^3/uL (1.0-4.8) Monocytes # (Auto) 0.8 x10^3/uL (0.0-1.1) Eosinophils # (Auto) 0.5 x10^3/uL (0.0-0.7) Basophils # (Auto) 0.2 x10^3/uL (0.0-0.2) Sodium Level 167 mmol/L (136-145) Potassium Level 4.4 mmol/L (3.5-5.1) Chloride Level 131 mmol/L (98-107) Carbon Dioxide Level 21 mmol/L (21-32) Anion Gap 15 (6-14) Blood Urea Nitrogen 103 mg/dL (7-20) Creatinine 4.3 mg/dL (0.6-1.0) Estimated GFR (Cockcroft-Gault) 10.3 Glucose Level 80 mg/dL (70-99) Lactic Acid Level 2.2 mmol/L (0.4-2.0) Calcium Level 7.7 mg/dL (8.5-10.1) Phosphorus Level 5.1 mg/dL (2.6-4.7) Magnesium Level 3.0 mg/dL (1.8-2.4) Albumin 2.0 g/dL (3.4-5.0) LEWIS DUPONT MD Jun 30, 2017 08:11
--- NOTE | 2017-06-30 08:39 | PDOC ---
Infectious Disease Note Vital Sign Vital Signs Vital Signs Date Time Temp Pulse Resp B/P (MAP) Pulse Ox O2 Delivery O2 Flow Rate FiO2 06/30/17 07:00 87 18 90/47 (61) 96 Room Air 06/30/17 04:00 97.3 97.3 06/29/17 17:00 2.0 Labs Lab Laboratory Tests Test 06/29/17 10:08 06/29/17 10:28 06/29/17 11:50 06/29/17 12:05 White Blood Count 13.1 x10^3/uL (4.0-11.0) Red Blood Count 5.00 x10^6/uL (3.50-5.40) Hemoglobin 16.2 g/dL (12.0-15.5) Hematocrit 51.4 % (36.0-47.0) Mean Corpuscular Volume 103 fL (79-100) Mean Corpuscular Hemoglobin 32 pg (25-35) Mean Corpuscular Hemoglobin Concent 32 g/dL (31-37) Red Cell Distribution Width 17.4 % (11.5-14.5) Platelet Count 190 x10^3/uL (140-400) Neutrophils (%) (Auto) 77 % (31-73) Lymphocytes (%) (Auto) 15 % (24-48) Monocytes (%) (Auto) 4 % (0-9) Eosinophils (%) (Auto) 3 % (0-3) Basophils (%) (Auto) 1 % (0-3) Neutrophils # (Auto) 10.1 x10^3uL (1.8-7.7) Lymphocytes # (Auto) 2.0 x10^3/uL (1.0-4.8) Monocytes # (Auto) 0.5 x10^3/uL (0.0-1.1) Eosinophils # (Auto) 0.4 x10^3/uL (0.0-0.7) Basophils # (Auto) 0.1 x10^3/uL (0.0-0.2) Prothrombin Time 13.7 SEC (11.7-14.0) Prothromb Time International Ratio 1.1 (0.8-1.1) Sodium Level 171 mmol/L (136-145) Potassium Level 5.1 mmol/L (3.5-5.1) Chloride Level 129 mmol/L (98-107) Carbon Dioxide Level 29 mmol/L (21-32) Anion Gap 13 (6-14) Blood Urea Nitrogen 126 mg/dL (7-20) Creatinine 5.7 mg/dL (0.6-1.0) Estimated GFR (Cockcroft-Gault) 7.4 Glucose Level 105 mg/dL (70-99) Lactic Acid Level 2.5 mmol/L (0.4-2.0) Calcium Level 9.9 mg/dL (8.5-10.1) Magnesium Level 3.5 mg/dL (1.8-2.4) Total Bilirubin 0.3 mg/dL (0.2-1.0) Direct Bilirubin 0.1 mg/dL (0.0-0.2) Aspartate Amino Transf (AST/SGOT) 38 U/L (15-37) Alanine Aminotransferase (ALT/SGPT) 49 U/L (14-59) Alkaline Phosphatase 140 U/L (46-116) Creatine Kinase 97 U/L (26-192) Creatine Kinase MB (Mass) 1.3 ng/mL (0.0-3.6) Creatine Kinase MB Relative Index 1.3 % (0-4) Troponin I Quantitative < 0.017 ng/mL (0.000-0.055) PG-Wss-V-Type Natriuretic Peptide 2590 pg/mL (0-124) Total Protein 9.6 g/dL (6.4-8.2) Albumin 2.9 g/dL (3.4-5.0) Lipase 252 U/L (73-393) Thyroid Stimulating Hormone (TSH) 1.071 uIU/mL (0.358-3.74) O2 Saturation 89 % (92-99) Arterial Blood pH 7.41 (7.35-7.45) Arterial Blood pCO2 at Patient Temp 38 mmHg (35-46) Arterial Blood pO2 at Patient Temp 60 mmHg (65-108) Arterial Blood HCO3 24 mmol/L (21-28) Arterial Blood Base Excess -1 mmol/L (-3-3) FiO2 21% Ammonia < 10 mcmol/L (11-34) Urine Collection Type U cath Urine Color Yellow Urine Clarity Cloudy Urine pH 5.5 Urine Specific Victoria 1.015 Urine Protein 30 mg/dL (NEG-TRACE) Urine Glucose (UA) Negative mg/dL (NEG) Urine Ketones (Stick) Negative mg/dL (NEG) Urine Blood Small (NEG) Urine Nitrite Positive (NEG) Urine Bilirubin Negative (NEG) Urine Urobilinogen Dipstick 0.2 mg/dL (0.2 mg/dL) Urine Leukocyte Esterase Large (NEG) Urine RBC 0 /HPF (0-2) Urine WBC Tntc /HPF (0-4) Urine Squamous Epithelial Cells Mod /LPF Urine Bacteria Mod /HPF (0-FEW) Urine Hyaline Casts Moderate /HPF Urine Opiates Screen Neg (NEG) Urine Methadone Screen Neg (NEG) Urine Barbiturates Neg (NEG) Urine Phencyclidine Screen Neg (NEG) Urine Amphetamine/Methamphetamine Neg (NEG) Urine Benzodiazepines Screen Neg (NEG) Urine Cocaine Screen Neg (NEG) Urine Cannabinoids Screen Neg (NEG) Urine Ethyl Alcohol Neg (NEG) Test 06/29/17 13:30 06/29/17 14:08 06/29/17 17:50 06/30/17 00:01 Nasal Screen MRSA (PCR) Negative (Negative) Lactic Acid Level 1.7 mmol/L (0.4-2.0) Creatine Kinase 70 U/L (26-192) Procalcitonin 0.32 ng/mL (0.00-0.10) Sodium Level 170 mmol/L (136-145) 169 mmol/L (136-145) Test 06/30/17 06:00 White Blood Count 18.6 x10^3/uL (4.0-11.0) Red Blood Count 4.57 x10^6/uL (3.50-5.40) Hemoglobin 15.0 g/dL (12.0-15.5) Hematocrit 47.6 % (36.0-47.0) Mean Corpuscular Volume 104 fL (79-100) Mean Corpuscular Hemoglobin 33 pg (25-35) Mean Corpuscular Hemoglobin Concent 31 g/dL (31-37) Red Cell Distribution Width 18.1 % (11.5-14.5) Platelet Count 92 x10^3/uL (140-400) Neutrophils (%) (Auto) 83 % (31-73) Lymphocytes (%) (Auto) 9 % (24-48) Monocytes (%) (Auto) 4 % (0-9) Eosinophils (%) (Auto) 3 % (0-3) Basophils (%) (Auto) 1 % (0-3) Neutrophils # (Auto) 15.5 x10^3uL (1.8-7.7) Lymphocytes # (Auto) 1.6 x10^3/uL (1.0-4.8) Monocytes # (Auto) 0.8 x10^3/uL (0.0-1.1) Eosinophils # (Auto) 0.5 x10^3/uL (0.0-0.7) Basophils # (Auto) 0.2 x10^3/uL (0.0-0.2) Sodium Level 167 mmol/L (136-145) Potassium Level 4.4 mmol/L (3.5-5.1) Chloride Level 131 mmol/L (98-107) Carbon Dioxide Level 21 mmol/L (21-32) Anion Gap 15 (6-14) Blood Urea Nitrogen 103 mg/dL (7-20) Creatinine 4.3 mg/dL (0.6-1.0) Estimated GFR (Cockcroft-Gault) 10.3 Glucose Level 80 mg/dL (70-99) Lactic Acid Level 2.2 mmol/L (0.4-2.0) Calcium Level 7.7 mg/dL (8.5-10.1) Phosphorus Level 5.1 mg/dL (2.6-4.7) Magnesium Level 3.0 mg/dL (1.8-2.4) Albumin 2.0 g/dL (3.4-5.0) Objective Assessment Septic shock w/ lactic acidosis. on Levophed gtt UTI POA. -Recent Klebsiella & GBS in urine, 05/30. Tx cipro Acute encephalopathy Hypothermic, prior to admit GLORY on CKD Severe dehydration Downs syndrome Dementia Plan Plan of Care Zosyn per Dr. Malka Dupont Add urine culture to spec in lab Monitor labs f/u cultures DNR Dr. Maci Dupont and RN Critically ill Thank you [phone] Attending Co-Sign The patient was seen and interviewed as well as examined at the bedside. The chart was reviewed. The case was discussed. Agree with the plan of care. KELLEY VELAZQUEZ APRN Jun 30, 2017 08:39 NOLA DUPONT MD Jun 30, 2017 10:48
[2017-06-30] MEDS: NOREPINEPHRIN PREMIX 250 ML IV PRN ×2 (08:46→21:56)
[2017-06-30] MEDS ORDERED: LORazepam 0.5 MG TABLET PO PRN (10:00)
[2017-06-30] MEDS ORDERED: BISACODYL 10 MG SUPP.RECT. RC PRN (10:00)
[2017-06-30] MEDS ORDERED: QUEtiapine 25 MG TABLET. PO PRN (10:00)
[2017-06-30 10:06] LABS: % EOS 2 % (0-5)
[2017-06-30 10:07] LABS: PLT ESTIMATE ADEQUATE (ADEQUATE); POLYCHROMASIA PRESENT
[2017-06-30] MEDS: PANTOPRAZOLE 40 MG TABLET.DR. PO SCH (11:00)
[2017-06-30] MEDS: ALLOPURINOL 100 MG TABLET. PO SCH (11:00)
[2017-06-30] MEDS: LEVOTHYROXINE 75 MCG TABLET PO SCH (11:00)
[2017-06-30] MEDS: DONEPEZIL HCL 5 MG TABLET. PO SCH (11:00)
[2017-06-30] MEDS: busPIRone 5 MG TABLET. PO SCH ×2 (11:00→19:03)
[2017-06-30] MEDS: CETIRIZINE HCL 10 MG TABLET. PO SCH (11:00)
[2017-06-30] MEDS: NYSTATIN TOPICAL POWDER 15GM BOTTLE. TP SCH ×2 (11:42→21:35)
--- NOTE | 2017-06-30 16:41 | CONS ---
DATE OF CONSULTATION: 06/29/2017 REQUESTING PHYSICIAN: Dr. Tayla Dupont REASON FOR CONSULTATION: Sepsis. HISTORY OF PRESENT ILLNESS: This patient is a 67-year-old female who is currently in the Intensive Care Unit, minimally responsive, unable to provide history of present illness, past medical history or review of systems. According to the medical record, she has a history of Down syndrome and dementia and lives in a residential. She was brought to the Emergency Room via ambulance after being found unresponsive, hypotensive and hypothermic. She was severely dehydrated and in acute renal failure with a creatinine of 5.7, BUN 126, and sodium 171. She had elevated white blood cell count of 13,100, procalcitonin 0.32 and lactic acid 2.5. Her urinalysis was positive for wbc's too numerous to count, leukocyte esterase large, positive nitrite and moderate squamous epithelial cells. Blood cultures are pending. She was dosed with piperacillin/tazobactam. The patient continues to be hypotensive requiring vasopressor support of Levophed 9 mcg/kg. Temperature has improved. No vomiting, diarrhea, or respiratory symptoms reported. The patient had a recent urinary tract infection with Klebsiella pneumoniae resistant to ampicillin, otherwise sensitive and group B strep in May, for which she was treated with ciprofloxacin. PAST MEDICAL HISTORY: Urinary tract infection with Klebsiella pneumoniae resistant to ampicillin, otherwise sensitive and group B strep, Down syndrome, dementia, chronic kidney disease, hypothyroidism, osteoarthritis, osteoporosis, gout, Crohn disease. PAST SURGICAL HISTORY: No recent surgeries. SOCIAL HISTORY: The patient lives in a residential. ALLERGIES: PHENOTHIAZINES AND LACTOSE. MEDICATIONS: Reviewed on JAN. Medications from residential also reviewed. REVIEW OF SYSTEMS: Unobtainable. PHYSICAL EXAMINATION: GENERAL: female in the Intensive Care Unit, in no apparent distress. VITAL SIGNS: Temperature 97.3, blood pressure 90/47, heart rate 87, respiratory rate 18, pulse oximetry is 96% on room air, weight is 93 pounds, BMI 18. HEENT: Pupils small. Normal conjunctivae. Oral mucosa is very dry. LUNGS: Clear to auscultation. Nonlabored. HEART: Normal S1 and S2. ABDOMEN: Obese, bowel sounds are present, soft. No grimace or guarding to palpation. GENITOURINARY: Willis in place. EXTREMITIES: No gross edema or cyanosis. SKIN: Without rash. Dry. NEUROLOGIC: Minimally responsive to tactile stimulation. LABORATORY DATA: Today's WBC 18.6, hemoglobin 15.0, platelet count 92,000. Sodium 167, potassium 4.4, creatinine 4.3, BUN 103. Lactic acid 2.2. Recent total bilirubin 0.3, AST 38, ALT 49, ammonia less than 10. BNP 2590. Lipase 252. Albumin 2.0. Procalcitonin 0.32. TSH 1.071. Urine toxicology negative. Urinalysis per HPI. MRSA screen negative. Blood cultures pending. IMAGING STUDIES: Chest x-ray shows mild interstitial prominence. Renal ultrasound shows atrophic kidneys with increased cortical echogenicity. Head CT shows ventricular prominence out of proportion to the degree of sulcal prominence; and probable small vessel ischemic disease. IMPRESSION: 1. Septic shock with lactic acidosis. 2. Urinary tract infection present on admission. 3. Acute encephalopathy. 4. Hypothermia. 5. Acute kidney injury on chronic kidney disease. 6. Severe dehydration. 7. Down syndrome. 8. Dementia. PLAN: 1. Continue the piperacillin/tazobactam. 2. We will add urine culture to the specimen already collected via catheterization. 3. Monitor laboratory values and await culture results. 4. The patient is a DNR. 5. Critically ill. Thank you Dr. Tayla Dupont for asking us to participate in this patient's care. Should you have further questions or concerns, please call. NOLA DUPONT MD DR: NAS/nguyen JOB#: [id number] / [id number]
[2017-06-30] MEDS: QUEtiapine 25 MG TABLET. PO SCH (19:03)
[2017-06-30] MEDS ORDERED: NON FORMULARY ITEM (Melatonin 1 TAB) PO SCH (21:00)
--- NOTE | 2017-06-30 21:46 | PN ---
DATE: 06/30/2017 SUBJECTIVE: The patient was admitted yesterday with altered mental status and was found to be in acute on chronic kidney injury, severe hypernatremia and she was also septic with infection. She was started on IV fluid. She had a liter of normal saline at the Emergency Room, was continued 125 mL per hour. After sending appropriate culture she was started on Zosyn 2.25 grams IV q.8 hourly and was started also on Levophed as she continued to be hypotensive. This morning, she seemed to be more responsive back to her yelling and her usual self, although is not yet back to normal. PHYSICAL EXAMINATION: GENERAL: This morning, she was resting slightly propped up in bed, in no apparent respiratory distress, pale. No jaundice, cyanosis, or thyromegaly. No jugular venous distention. No lower limb edema. VITAL SIGNS: Her heart rate was 86, blood pressure was 105/53. Temperature was 97.3, respiratory rate was 15 and oxygen saturation was 98% on room air. HEAD, EYES, EARS, NOSE AND THROAT: Showed normocephalic, atraumatic. NECK: Supple. HEART: Showed normal first and second heart sounds with no gallop, rub or murmur. CHEST: Clear to auscultation. No crepitation or rhonchi. ABDOMEN: Scaphoid, soft, nontender. NEUROLOGIC: She was continued to be somewhat lethargic, but arousable, opens her eyes and voice somewhat. All her cranial nerves intact. She moves extremities without difficulty, although she continues to be mostly bedbound. The mucous membranes are very dry and she has ____ skin turgor. Her intake over the last 24 hours was 4100, output was 729. LABORATORY DATA: As of this morning, her serum sodium was 167, potassium 4.4, chloride 131, bicarbonate 21, anion gap of 15, BUN was 103, creatinine is slightly down to 4.3, estimated GFR was 10.3, lactic acid improved to 2.2, calcium is 7.7, phosphorus is 5.1, magnesium 3 and her albumin was only 2 g/dL. ASSESSMENT: Altered mental status due to both metabolic and toxic encephalopathy, hypernatremia, acute on chronic kidney injury, improving slowly. Sepsis with lactic acidosis, most likely due to urosepsis. PLAN: To continue with IV antibiotic. Continue IV fluid. I did reconcile all her medications. I held her potassium and Lasix. We will restart her pureed diet, nectar thickened liquid. Repeat her lab works tomorrow. SHAISTA RODRIGUEZ MD DR: IRVIN/nguyen JOB#: [id number] / [id number]
[2017-07-01] VITALS (16 sets, daily range): BP systolic 81–116; BP diastolic 39–56
[2017-07-01] MEDS: PIPERACILLIN/TAZOBACTAM 2.25 GM in IV NORMAL SALINE 50ML 50 ML IV SCH ×3 (05:31→22:11)
[2017-07-01] MEDS: IV 1/2 NORMAL SALINE 1,000 ML IV SCH ×3 (05:31→22:31)
--- NOTE | 2017-07-01 06:45 | HP ---
ADMIT DATE: 06/29/2017 HISTORY OF PRESENT ILLNESS: This is a 67-year-old female patient, a resident at [facility] who was noted yesterday by the nursing staff to be unresponsive with both central and peripheral cyanosis, was transferred to emergency room, evaluated in the emergency room and was found to have severe hypernatremia, acute kidney injury with a creatinine of 5.7. She was also found to have recent urinary tract infection, was admitted to the ICU, started on IV fluid, IV antibiotic as well as vasopressor in the form of Levophed. The patient herself has Down syndrome, was very lethargic and does not give any useful information. She apparently has been in bed for the last 2 days prior to admission, not wanting to do much and then on the day of admission she was unresponsive. She was found to be also hypotensive, cold. PAST MEDICAL HISTORY: Significant for Down syndrome, Meniere's disease, intellectual disability, gastroesophageal reflux disease without esophagitis, Crohn's disease, chronic kidney disease, secondary hyperparathyroidism, age-related osteoporosis without current pathological fracture, hypothyroidism, allergic rhinitis, gout as well as dementia with behavioral disturbance and dysphagia. PAST SURGICAL HISTORY: Unremarkable. FAMILY HISTORY: Unobtainable. SOCIAL HISTORY: She is a resident at [facility]. MEDICATIONS: She is currently on following medications: She is on alendronate sodium 70 mg once a week every Saturday, allopurinol 100 mg once a day, aspirin 325 mg once a day, Biscolax suppository 10 mg rectally as needed daily for constipation, buspirone 5 mg twice a day, calcium with vitamin D 1 tablet 3 times a day, Aricept 5 mg once a day, furosemide 20 mg daily, levothyroxine sodium 75 mcg once a day, loratadine 10 mg once a day. She is also on lorazepam 0.5 mg every 4 hours, melatonin 3 mg at bedtime, MiraLax 17 g in 8 ounces of water daily p.r.n. for constipation, nystatin powder 100,000 units per gram applied to groin area topically twice a day, omeprazole 40 mg once a day, potassium chloride extended release 20 mEq once a day, Seroquel 25 mg by mouth every 4 hours and Seroquel 50 mg at bedtime. PHYSICAL EXAMINATION: GENERAL: On arrival to the emergency room, the patient was pale, cachectic but not jaundiced. No jugular venous distention. No limb edema. VITAL SIGNS: Her heart rate was 99, blood pressure was 90/56, temperature was 97.7, respiratory rate was 17 and oxygen saturation was 100% on room air. HEAD, EYES, EARS, NOSE AND THROAT: Showed normocephalic, atraumatic. NECK: Supple. HEART: Showed normal first and second heart sounds. No gallop, rub or murmur. CHEST: Clear to auscultation. No crepitation or rhonchi. ABDOMEN: Scaphoid, soft, nontender. NEUROLOGIC: She was lethargic, but arousable. All cranial nerves intact. EXTREMITIES: She moves extremities without difficulty. LABORATORY DATA: On arrival showed a serum sodium of 171, potassium 5.1, chloride 129, bicarbonate 29, anion gap of 13, BUN 126, creatinine 5.7, estimated GFR was 7.4 mL per minute, her glucose 105. Lactic acid was 2.5, calcium was 9.9, magnesium 3.5. Total bilirubin, AST, ALT, alkaline phosphatase were normal. Her CK was slightly elevated, beta-natriuretic peptide was 2590, total protein was 9.6, albumin 2.9. Lipase was ____. White cell count was 13,100; hemoglobin 16; hematocrit 51; MCV 103 and platelet count of 190,000 with normal manual differential. Her blood gases on admission showed a pH of 7.41, pCO2 of 38, pO2 of 60, bicarbonate 24 and oxygen saturation was 89% on FiO2 of 21%. Her prothrombin time was 13.7, INR 1.1. Urinalysis showed the urine was yellow, cloudy with a pH of 5.5, specific gravity of 1.015. There was a trace of protein. The urine was negative for glucose, ketones, small amount of blood, positive for nitrites and large amount of leukocyte esterase. There are no rbc's, too numerous to count wbc's, moderate amount of bacteria. Her toxic screen was essentially negative. Her nasal screen for MRSA by PCR was negative. ASSESSMENT AND PLAN: The patient was admitted with sepsis, most likely due to urinary tract infection, hypotension, [id number] kidney injury and severe hypernatremia. She was given 1 L of normal saline and continued at 125 mL per minute. Her urine was sent for culture and was started empirically on IV antibiotics. We did consult mmd unit teacher, Dr. Tayla Sanz, as well as the infectious disease specialist, Dr. Cook. We will continue to monitor, continue with IV fluid, continue with antibiotic and vasopressor. We will obviously adjust antibiotics according to the results of the urine culture and sensitivity and monitor her lab work closely. SHAISTA RODRIGUEZ MD DR: IRVIN/nguyen JOB#: [id number] / [id number]
[2017-07-01] MEDS: LEVOTHYROXINE 75 MCG TABLET PO SCH (07:00)
[2017-07-01] MEDS: PANTOPRAZOLE 40 MG TABLET.DR. PO SCH (07:30)
[2017-07-01] MEDS: ALLOPURINOL 100 MG TABLET. PO SCH (07:46)
[2017-07-01] MEDS: DONEPEZIL HCL 5 MG TABLET. PO SCH (07:46)
[2017-07-01] MEDS: CETIRIZINE HCL 10 MG TABLET. PO SCH (07:46)
[2017-07-01] MEDS: busPIRone 5 MG TABLET. PO SCH ×2 (07:46→21:00)
[2017-07-01 08:19] LABS: BASO # 0.1 x10^3/uL (0.0-0.2); BASO % 1 % (0-3); EOS % 3 % (0-3); HEMATOCRIT 36.2 % (36.0-47.0); HEMOGLOBIN 11.5 g/dL (12.0-15.5); LYMPH # 1.3 x10^3/uL (1.0-4.8); LYMPH % 17 % (24-48); MEAN CORPUSCULAR HEMOGLOBIN 33 pg (25-35); MEAN CORPUSCULAR HGB CONC 32 g/dL (31-37); MEAN CORPUSCULAR VOLUME 104 fL (79-100); MONO % 4 % (0-9); NEUT % 75 % (31-73); PLATELET COUNT 102 x10^3/uL (140-400); RED BLOOD COUNT 3.49 x10^6/uL (3.50-5.40); RED CELL DISTRIBUTION WIDTH 17.2 % (11.5-14.5); WHITE BLOOD COUNT 7.8 x10^3/uL (4.0-11.0)
[2017-07-01 08:39] LABS: ALBUMIN 1.8 g/dL (3.4-5.0); ALBUMIN/GLOBULIN RATIO 0.4 (1.0-1.7); CALCIUM 6.8 mg/dL (8.5-10.1); CREATININE 3.1 mg/dL (0.6-1.0); MAGNESIUM 2.2 mg/dL (1.8-2.4); PHOSPHORUS 3.8 mg/dL (2.6-4.7); POTASSIUM 3.7 mmol/L (3.5-5.1); TOTAL BILIRUBIN 0.4 mg/dL (0.2-1.0); URIC ACID 5.1 mg/dL (2.6-6.0)
--- NOTE | 2017-07-01 08:47 | PDOC ---
Infectious Disease Note Subjective Subjective sleepy ROS ROS unable to do Vital Sign Vital Signs Vital Signs Date Time Temp Pulse Resp B/P (MAP) Pulse Ox O2 Delivery O2 Flow Rate FiO2 07/01/17 08:00 Room Air 07/01/17 08:00 97.0 69 14 97/53 (68) 97 97.0 Physical Exam PHYSICAL EXAM GENERAL: NAD, Alert HEENT: PERRL, OC/OP NECK: Supple, no JVD, no LN LUNGS: Clear HEART: S1S2, no gallop, no murmur ABD: Soft, NT, no organomegaly, no rebound EXT: No edema, no cyanosis MEETING PLANNER: sleepy SKIN: No rash IV: ok Labs Lab Laboratory Tests Test 06/30/17 12:10 06/30/17 18:00 07/01/17 00:15 07/01/17 08:00 Sodium Level 163 mmol/L (136-145) 161 mmol/L (136-145) 162 mmol/L (136-145) 159 mmol/L (136-145) White Blood Count 7.8 x10^3/uL (4.0-11.0) Red Blood Count 3.49 x10^6/uL (3.50-5.40) Hemoglobin 11.5 g/dL (12.0-15.5) Hematocrit 36.2 % (36.0-47.0) Mean Corpuscular Volume 104 fL (79-100) Mean Corpuscular Hemoglobin 33 pg (25-35) Mean Corpuscular Hemoglobin Concent 32 g/dL (31-37) Red Cell Distribution Width 17.2 % (11.5-14.5) Platelet Count 102 x10^3/uL (140-400) Neutrophils (%) (Auto) 75 % (31-73) Lymphocytes (%) (Auto) 17 % (24-48) Monocytes (%) (Auto) 4 % (0-9) Eosinophils (%) (Auto) 3 % (0-3) Basophils (%) (Auto) 1 % (0-3) Neutrophils # (Auto) 5.9 x10^3uL (1.8-7.7) Lymphocytes # (Auto) 1.3 x10^3/uL (1.0-4.8) Monocytes # (Auto) 0.3 x10^3/uL (0.0-1.1) Eosinophils # (Auto) 0.2 x10^3/uL (0.0-0.7) Basophils # (Auto) 0.1 x10^3/uL (0.0-0.2) Potassium Level 3.7 mmol/L (3.5-5.1) Chloride Level 125 mmol/L (98-107) Carbon Dioxide Level 19 mmol/L (21-32) Anion Gap 15 (6-14) Blood Urea Nitrogen 68 mg/dL (7-20) Creatinine 3.1 mg/dL (0.6-1.0) Estimated GFR (Cockcroft-Gault) 15.0 BUN/Creatinine Ratio 22 (6-20) Glucose Level 59 mg/dL (70-99) Uric Acid 5.1 mg/dL (2.6-6.0) Calcium Level 6.8 mg/dL (8.5-10.1) Phosphorus Level 3.8 mg/dL (2.6-4.7) Magnesium Level 2.2 mg/dL (1.8-2.4) Total Bilirubin 0.4 mg/dL (0.2-1.0) Aspartate Amino Transf (AST/SGOT) 26 U/L (15-37) Alanine Aminotransferase (ALT/SGPT) 20 U/L (14-59) Alkaline Phosphatase 97 U/L (46-116) Total Protein 6.0 g/dL (6.4-8.2) Albumin 1.8 g/dL (3.4-5.0) Albumin/Globulin Ratio 0.4 (1.0-1.7) Objective Assessment Septic shock w/ lactic acidosis. on Levophed gtt UTI POA. -Recent Klebsiella & GBS in urine, 05/30. Tx cipro Acute encephalopathy Hypothermic, prior to admit GLORY on CKD Severe dehydration Downs syndrome Dementia Plan Plan of Care Zosyn Add urine culture to spec in lab Monitor labs f/u cultures DNR NOLA DUPONT MD Jul 01, 2017 08:47
[2017-07-01] MEDS: NYSTATIN TOPICAL POWDER 15GM BOTTLE. TP SCH ×2 (10:42→22:14)
--- NOTE | 2017-07-01 11:11 | PDOC ---
Renal-Progress Notes Subjective Notes Notes IMPROVED History of Present Illness Hx of present illness STABLE Vitals Vitals Vital Signs Date Time Temp Pulse Resp B/P (MAP) Pulse Ox O2 Delivery O2 Flow Rate FiO2 07/01/17 10:00 68 12 98/45 (62) 99 Room Air 07/01/17 08:00 97.0 97.0 Weight Weight [ ] I.O. Intake and Output Intake and Output 07/01/17 07:00 Intake Total 3626.8 ml Output Total 1895 ml Balance 1731.8 ml Intake Oral 0 ml IV Total 3626.8 ml Output Urine Total 1895 ml Labs Labs Laboratory Tests Test 06/30/17 12:10 06/30/17 18:00 07/01/17 00:15 07/01/17 08:00 Sodium Level 163 mmol/L (136-145) 161 mmol/L (136-145) 162 mmol/L (136-145) 159 mmol/L (136-145) White Blood Count 7.8 x10^3/uL (4.0-11.0) Red Blood Count 3.49 x10^6/uL (3.50-5.40) Hemoglobin 11.5 g/dL (12.0-15.5) Hematocrit 36.2 % (36.0-47.0) Mean Corpuscular Volume 104 fL (79-100) Mean Corpuscular Hemoglobin 33 pg (25-35) Mean Corpuscular Hemoglobin Concent 32 g/dL (31-37) Red Cell Distribution Width 17.2 % (11.5-14.5) Platelet Count 102 x10^3/uL (140-400) Neutrophils (%) (Auto) 75 % (31-73) Lymphocytes (%) (Auto) 17 % (24-48) Monocytes (%) (Auto) 4 % (0-9) Eosinophils (%) (Auto) 3 % (0-3) Basophils (%) (Auto) 1 % (0-3) Neutrophils # (Auto) 5.9 x10^3uL (1.8-7.7) Lymphocytes # (Auto) 1.3 x10^3/uL (1.0-4.8) Monocytes # (Auto) 0.3 x10^3/uL (0.0-1.1) Eosinophils # (Auto) 0.2 x10^3/uL (0.0-0.7) Basophils # (Auto) 0.1 x10^3/uL (0.0-0.2) Potassium Level 3.7 mmol/L (3.5-5.1) Chloride Level 125 mmol/L (98-107) Carbon Dioxide Level 19 mmol/L (21-32) Anion Gap 15 (6-14) Blood Urea Nitrogen 68 mg/dL (7-20) Creatinine 3.1 mg/dL (0.6-1.0) Estimated GFR (Cockcroft-Gault) 15.0 BUN/Creatinine Ratio 22 (6-20) Glucose Level 59 mg/dL (70-99) Uric Acid 5.1 mg/dL (2.6-6.0) Calcium Level 6.8 mg/dL (8.5-10.1) Phosphorus Level 3.8 mg/dL (2.6-4.7) Magnesium Level 2.2 mg/dL (1.8-2.4) Total Bilirubin 0.4 mg/dL (0.2-1.0) Aspartate Amino Transf (AST/SGOT) 26 U/L (15-37) Alanine Aminotransferase (ALT/SGPT) 20 U/L (14-59) Alkaline Phosphatase 97 U/L (46-116) Total Protein 6.0 g/dL (6.4-8.2) Albumin 1.8 g/dL (3.4-5.0) Albumin/Globulin Ratio 0.4 (1.0-1.7) Micro Micro Microbiology 06/29/17 Blood Culture - Preliminary, Resulted NO GROWTH AFTER 1 DAY Review of Systems Constitutional: yes: no symptom reported, other (CANT OBTAIN) Physical Exam General Appearance: no apparent distress Skin: warm Respiratory: decreased breath sounds Heart: S1S2, RRR Abdomen: soft, bowel sounds present Genitourinary: bladder flat Extremities: pulses present, no edema, atrophy Neurology: confused Assessment Assessment IMP GLORY-BETTER WITH CR DOWN TO 3.1 CKD STAGE 3 TO 4 WITH CR ABOUT 2.5-3.0 DOWN'S SYNDROME MENTAL RETARDATION MET ENCEPHALOPATHY UTI ANEMIA HYPERNATREMIA SEPSIS LEUCOCYTOSIS PLAN CONT WITH IVF'S CONT WITH ANTIBIOTICS WILL ASK PALLIATIVE CARE TEAM TO SET GOALS I HAVE KNOW VALERIY FOR ABOUT 15 YEARS OR MORE SHE HAS CONTINUALLY AND PROGRESSIVELY DECLINED RECENTLY HAVE D/W DPOA CONSERVATIVE CARE PT IS NOT A CANDIDATE FOR DIALYSIS AUSTIN,ELOISE S MD Jul 01, 2017 11:11
--- NOTE | 2017-07-01 12:59 | PN ---
DATE: 07/01/2017 SUBJECTIVE: The patient is resting flat, comfortably in bed, in no apparent respiratory distress. She is sleepy, but arousable. Continued to be sometimes restless, agitated, yelling, but overall, the nursing staff stated that she had an uneventful night and examined her. She has also failed bedside swallowing yesterday. Awaiting for the speech therapy to see whether it is safe for her to go back on a pureed diet, nectar-thickened liquid. PHYSICAL EXAMINATION: GENERAL: When I examined her, she was pale, cachectic, but not jaundiced, cyanosis or thyromegaly. No jugular venous distension. No lower limb edema. VITAL SIGNS: Her heart rate was 68, blood pressure was 98/45, temperature was 97, respiratory rate was 12 and oxygen saturation was 99% on room air. HEAD, EYES, EARS, NOSE AND THROAT: Showed normocephalic, atraumatic. NECK: Supple. HEART: Showed normal first and second heart sounds, with no gallop, rub or murmur. CHEST: Clear to auscultation. No crepitation or rhonchi. ABDOMEN: Distended, soft, nontender. NEUROLOGIC: She is demented, but without any obvious lateralizing sign. All cranial nerves are intact. She moves extremities without difficulty. She normally ambulates without assistance or assistive devices. Her intake over the last 24 hours was 3600, output was 1745. LABORATORY DATA: Her lab work as of this morning showed a white cell count down to 7800, hemoglobin 11.5, hematocrit 36, MCV 104 and platelet count of 102,000 with normal manual differential. Her serum sodium is down to 159, potassium 3.7, chloride 125, bicarbonate 19, anion gap of 15, BUN 68, creatinine 3.1 and estimated GFR was 15 mL per minute. Her glucose was 59. Uric acid was 5.1, calcium was 6.8 with phosphorus 3.8 and magnesium 2.2. Total bilirubin, AST, ALT, alkaline phosphatase are normal. Her total protein was 6, albumin was 1.8. ASSESSMENT: Altered mental status due to metabolic toxic encephalopathy, resolving; hypernatremia, improving; [id number]-[id number] kidney injury, resolving; sepsis with lactic acidosis, resolved. Other issues include hypothyroidism, Meniere's disease, Down syndrome, intellectual disability, gastroesophageal reflux disease and Crohn's disease. PLAN: Plan is to continue with IV fluid and IV antibiotic. I will add heparin 5000 units subcutaneously 3 times a day. Await evaluation by the speech therapy to see whether it is safe for her to be back on her pureed diet and nectar-thickened liquid. SHAISTA RODRIGUEZ MD DR: IRVIN/nguyen JOB#: [id number] / [id number]
--- NOTE | 2017-07-01 13:33 | PDOC2 ---
PALLIATIVE CARE Palliative Care Note Palliative Care Consult requested by Dr. Eastman to address goals of care Diagnosis: GLORY--improving/not a dialysis candidate; Down's Syndrome; Mental Retardation; Metabolic Encephalopathy; Anemia; Hypernatremia--improved; Sepsis-- on antibiotics, Leucocytosis; off Levophed Dysphagia--swallow evaluation pending. Patient is a resident of [facility] Spoke with POA/Guardian Emanuel Mota. He is unable to meet today. Requested copy of Guardian/POA documents. Plan: Meet at 0830 in am. to discuss goals of care. KLEBER STEVE Jul 01, 2017 13:33
[2017-07-01] MEDS: HEPARIN PF for SUB-Q USE 5,000 UNIT/0.5 ML VIAL. SQ SCH ×2 (13:55→22:12)
[2017-07-01] MEDS: QUEtiapine 25 MG TABLET. PO SCH (21:00)
[2017-07-02] VITALS (7 sets, daily range): BP systolic 90–124; BP diastolic 43–52
[2017-07-02] MEDS: PIPERACILLIN/TAZOBACTAM 2.25 GM in IV NORMAL SALINE 50ML 50 ML IV SCH ×3 (05:33→21:07)
[2017-07-02] MEDS: HEPARIN PF for SUB-Q USE 5,000 UNIT/0.5 ML VIAL. SQ SCH ×3 (05:34→21:17)
[2017-07-02 06:21] LABS: ALBUMIN 1.6 g/dL (3.4-5.0); CALCIUM 6.8 mg/dL (8.5-10.1); CREATININE 2.7 mg/dL (0.6-1.0); GFR 17.6; PHOSPHORUS 3.8 mg/dL (2.6-4.7); POTASSIUM 3.8 mmol/L (3.5-5.1)
[2017-07-02] MEDS: IV 1/2 NORMAL SALINE 1,000 ML IV SCH (06:43)
[2017-07-02] MEDS ORDERED: IV DEXTROSE 5% 250 ML IV ONE (07:00)
--- NOTE | 2017-07-02 08:35 | PDOC ---
Infectious Disease Note Subjective Subjective sleepy ROS ROS unable to do Vital Sign Vital Signs Vital Signs Date Time Temp Pulse Resp B/P (MAP) Pulse Ox O2 Delivery O2 Flow Rate FiO2 07/02/17 03:00 98.2 93 20 105/51 (69) 94 Room Air 98.2 Physical Exam PHYSICAL EXAM GENERAL: NAD, Alert HEENT: PERRL, OC/OP NECK: Supple, no JVD, no LN LUNGS: Clear HEART: S1S2, no gallop, no murmur ABD: Soft, NT, no organomegaly, no rebound EXT: No edema, no cyanosis SANDER SETTER: Alert, , no focal neurologic deficit SKIN: No rash IV: ok Labs Lab Laboratory Tests Test 07/01/17 11:50 07/01/17 18:00 07/02/17 00:25 07/02/17 05:35 Sodium Level 159 mmol/L (136-145) 156 mmol/L (136-145) 156 mmol/L (136-145) 155 mmol/L (136-145) Potassium Level 3.8 mmol/L (3.5-5.1) Chloride Level 121 mmol/L (98-107) Carbon Dioxide Level 13 mmol/L (21-32) Anion Gap 21 (6-14) Blood Urea Nitrogen 51 mg/dL (7-20) Creatinine 2.7 mg/dL (0.6-1.0) Estimated GFR (Cockcroft-Gault) 17.6 Glucose Level 42 mg/dL (70-99) Calcium Level 6.8 mg/dL (8.5-10.1) Phosphorus Level 3.8 mg/dL (2.6-4.7) Magnesium Level 2.1 mg/dL (1.8-2.4) Albumin 1.6 g/dL (3.4-5.0) Test 07/02/17 07:35 Glucose (Fingerstick) 108 mg/dL (70-99) Objective Assessment Septic shock w/ lactic acidosis. UTI POA. -Recent Klebsiella & GBS in urine, 05/30. Tx cipro Acute encephalopathy Hypothermic, prior to admit GLORY on CKD Severe dehydration Downs syndrome Dementia Plan Plan of Care Zosyn urine culture to spec in lab Monitor labs f/u cultures DNR comfort care in works NOLA DUPONT MD Jul 02, 2017 08:35
[2017-07-02] MEDS: PANTOPRAZOLE IV PUSH 40 MG VIAL. IVP SCH (08:36)
[2017-07-02] MEDS: LEVOTHYROXINE SODIUM 37.5 MCG in IV NORMAL SALINE 50ML 5 ML IVP SCH (08:55)
[2017-07-02] MEDS: NYSTATIN TOPICAL POWDER 15GM BOTTLE. TP SCH ×2 (08:59→22:36)
[2017-07-02] MEDS: CETIRIZINE HCL 10 MG TABLET. PO SCH (09:00)
[2017-07-02] MEDS: ALLOPURINOL 100 MG TABLET. PO SCH (09:00)
[2017-07-02] MEDS: busPIRone 5 MG TABLET. PO SCH ×2 (09:00→21:06)
[2017-07-02] MEDS: DONEPEZIL HCL 5 MG TABLET. PO SCH (09:00)
--- NOTE | 2017-07-02 10:07 | PDOC2 ---
PALLIATIVE CARE Palliative Care Note Palliative Care Patient minimally responsive to verbal stimuli. Met with MIHIR SolorzanoOA/Guardian. Patient has 2 brothers--Raul not involved in care. Kole older brother Reviewed medical condition: UTI treated with antibiotics; A/C KD--not a candidate for dialysis;anemia, Down's syndrome.; dysphagia--aspirating on own secretions Per Emanuel patient has been declining for last several months. Emanuel would like to focus on her comfort. Discussed Hospice support. Emanuel would like to have her return to [facility] with Hospice--no preference--not returning to Hospital. If [facility] not able to provide care he would be interested in [facility]. Confirmed Code Status: DNR/DNI Outside the Hospital DNR/DNI signed. Will need physician signature. Leah JAUREGUI updated on goals of care. Spoke with Brooklynn YOU who will assist with discharge plans. KLEBER STEVE Jul 02, 2017 10:07
--- NOTE | 2017-07-02 10:53 | PDOC ---
Renal-Progress Notes Subjective Notes Notes NONE, COMFORTABLE History of Present Illness Hx of present illness COMFORTABLE Vitals Vitals Vital Signs Date Time Temp Pulse Resp B/P (MAP) Pulse Ox O2 Delivery O2 Flow Rate FiO2 07/02/17 03:00 98.2 93 20 105/51 (69) 94 Room Air 98.2 Weight Weight [ ] I.O. Intake and Output Intake and Output 07/02/17 07:00 Intake Total 2905 ml Output Total 920 ml Balance 1985 ml Intake Oral 5 ml IV Total 2900 ml Output Urine Total 920 ml Labs Labs Laboratory Tests Test 07/01/17 11:50 07/01/17 18:00 07/02/17 00:25 07/02/17 05:35 Sodium Level 159 mmol/L (136-145) 156 mmol/L (136-145) 156 mmol/L (136-145) 155 mmol/L (136-145) Potassium Level 3.8 mmol/L (3.5-5.1) Chloride Level 121 mmol/L (98-107) Carbon Dioxide Level 13 mmol/L (21-32) Anion Gap 21 (6-14) Blood Urea Nitrogen 51 mg/dL (7-20) Creatinine 2.7 mg/dL (0.6-1.0) Estimated GFR (Cockcroft-Gault) 17.6 Glucose Level 42 mg/dL (70-99) Calcium Level 6.8 mg/dL (8.5-10.1) Phosphorus Level 3.8 mg/dL (2.6-4.7) Magnesium Level 2.1 mg/dL (1.8-2.4) Albumin 1.6 g/dL (3.4-5.0) Test 07/02/17 07:35 Glucose (Fingerstick) 108 mg/dL (70-99) Micro Micro Microbiology 06/29/17 Blood Culture - Preliminary, Resulted NO GROWTH AFTER 2 DAYS Review of Systems Constitutional: yes: no symptom reported, other (CANT OBTAIN) Physical Exam General Appearance: no apparent distress Skin: warm Respiratory: decreased breath sounds Heart: S1S2, RRR Abdomen: soft, bowel sounds present Genitourinary: bladder flat Extremities: pulses present, no edema, atrophy Neurology: confused Assessment Assessment IMP GLORY-BETTER WITH CR DOWN TO 3.1 CKD STAGE 3 TO 4 WITH CR ABOUT 2.5-3.0 DOWN'S SYNDROME MENTAL RETARDATION MET ENCEPHALOPATHY UTI ANEMIA HYPERNATREMIA SEPSIS LEUCOCYTOSIS PLAN PT IS NOT A CANDIDATE FOR DIALYSIS D/W PALLIATIVE CARE TEAM PALLIATIVE COMFORT CARE PLANNED I WILL SIGN OFF ELOISE AUSTIN MD Jul 02, 2017 10:53
[2017-07-02] MEDS: IV DEXTROSE 5% 1,000 ML IV SCH ×2 (12:39→21:06)
--- NOTE | 2017-07-02 16:55 | PN ---
DATE: 07/02/2017 SUBJECTIVE: The patient is very lethargic but arousable. She opens eyes but does not really for a command, and her sodium continues to be high, although her kidney function is trending down. Her BUN is down to 51 from 126, and creatinine is down to 2.7 from 5.7. She has also an episode of hypoglycemia this morning, and therefore, my plan was to change her IV fluid to D5W to correct her sodium and repeat her labs tomorrow, and if there is no improvement in her neurological status, I think the hospice care would be appropriate. PHYSICAL EXAMINATION: GENERAL: When I saw her today, she was pale, cachectic but no jaundice, cyanosis or thyromegaly. No jugular venous distention. No limb edema. VITAL SIGNS: Her heart rate was 79, blood pressure was 98/50, temperature was 99.2, respiratory rate was 16 and oxygen saturation was 93% on room air. Rest of clinical examination is stable, and the patient is very lethargic but arousable. She is mostly bed bound. Her intake over the last 24 hours was 3626. Output was 1745. LABORATORY WORK: As of this morning showed a serum sodium 155, potassium 3.8, chloride 121. BUN was 51. Anion gap was 21, and creatinine was 2.7. Estimated GFR was 17 mL per minute. Her glucose was 42. Calcium was 6.8, phosphorus 3.8, magnesium 2.1. Albumin was 1.6. ASSESSMENT: 1. Altered mental status due to metabolic and toxic encephalopathy. 2. Hypernatremia, slowly resolving. 3. Ofpop-mx-[id number] kidney injury, resolving. 4. Sepsis with lactic acidosis, resolved. 5. Hypothyroidism. 6. Meniere's disease. 7. Down syndrome. 8. Intellectual disability. 9. Gastroesophageal reflux disease and Crohn's disease. PLAN: My plan is to discontinue the half normal saline and start her on D5W. We will repeat her lab work. Continue with antibiotic. Continue with DVT prophylaxis. If her electrolytes improve by tomorrow and her mental status improves, obviously that is the desired outcome. Otherwise, if despite improving her electrolytes, she continues to be lethargic and unresponsive, we will pursue palliative and hospice care. SHAISTA RODRIGUEZ MD DR: IRVIN/nguyen JOB#: [id number] / [id number]
[2017-07-02] MEDS: QUEtiapine 25 MG TABLET. PO SCH (21:06)
[2017-07-03 03:05] VITALS: BP 115/46
[2017-07-03 05:14] LABS: HEMATOCRIT 35.4 % (36.0-47.0); HEMOGLOBIN 11.5 g/dL (12.0-15.5); RED BLOOD COUNT 3.52 x10^6/uL (3.50-5.40); RED CELL DISTRIBUTION WIDTH 16.4 % (11.5-14.5); WHITE BLOOD COUNT 5.5 x10^3/uL (4.0-11.0)
[2017-07-03] MEDS: PIPERACILLIN/TAZOBACTAM 2.25 GM in IV NORMAL SALINE 50ML 50 ML IV SCH ×3 (05:24→21:23)
[2017-07-03] MEDS: IV DEXTROSE 5% 1,000 ML IV SCH ×3 (05:25→12:30)
[2017-07-03] MEDS: HEPARIN PF for SUB-Q USE 5,000 UNIT/0.5 ML VIAL. SQ SCH (05:31)
[2017-07-03 06:03] LABS: ALBUMIN 1.5 g/dL (3.4-5.0); ALBUMIN/GLOBULIN RATIO 0.3 (1.0-1.7); CALCIUM 6.9 mg/dL (8.5-10.1); CREATININE 2.4 mg/dL (0.6-1.0); GFR 20.2; PHOSPHORUS 2.3 mg/dL (2.6-4.7); POTASSIUM 3.2 mmol/L (3.5-5.1); TOTAL BILIRUBIN 0.4 mg/dL (0.2-1.0); TOTAL PROTEIN 5.8 g/dL (6.4-8.2)
[2017-07-03] MEDS: CETIRIZINE HCL 10 MG TABLET. PO SCH ×2 (07:22→13:17)
[2017-07-03] MEDS: busPIRone 5 MG TABLET. PO SCH ×2 (07:22→21:00)
[2017-07-03] MEDS: DONEPEZIL HCL 5 MG TABLET. PO SCH ×2 (07:22→13:16)
[2017-07-03] MEDS: ALLOPURINOL 100 MG TABLET. PO SCH ×2 (07:22→13:16)
[2017-07-03 07:40] VITALS: BP 91/37
[2017-07-03] MEDS: NYSTATIN TOPICAL POWDER 15GM BOTTLE. TP SCH ×2 (08:51→21:23)
[2017-07-03] MEDS: PANTOPRAZOLE IV PUSH 40 MG VIAL. IVP SCH (08:51)
[2017-07-03] MEDS: LEVOTHYROXINE SODIUM 37.5 MCG in IV NORMAL SALINE 50ML 5 ML IVP SCH (08:55)
--- NOTE | 2017-07-03 10:03 | PDOC ---
Infectious Disease Note Subjective Subjective sleepy ROS ROS unable to do Vital Sign Vital Signs Vital Signs Date Time Temp Pulse Resp B/P (MAP) Pulse Ox O2 Delivery O2 Flow Rate FiO2 07/03/17 08:00 Room Air 07/03/17 07:40 98.7 64 18 91/37 (55) 97 98.7 Physical Exam PHYSICAL EXAM GENERAL: NAD, Alert HEENT: PERRL, OC/OP NECK: Supple, no JVD, no LN LUNGS: Clear HEART: S1S2, no gallop, no murmur ABD: Soft, NT, no organomegaly, no rebound EXT: No edema, no cyanosis HIGH LIFT DRIVER: Alert, SKIN: No rash IV: ok Labs Lab Laboratory Tests Test 07/02/17 21:01 07/03/17 04:25 Glucose (Fingerstick) 119 mg/dL (70-99) White Blood Count 5.5 x10^3/uL (4.0-11.0) Red Blood Count 3.52 x10^6/uL (3.50-5.40) Hemoglobin 11.5 g/dL (12.0-15.5) Hematocrit 35.4 % (36.0-47.0) Mean Corpuscular Volume 101 fL (79-100) Mean Corpuscular Hemoglobin 33 pg (25-35) Mean Corpuscular Hemoglobin Concent 32 g/dL (31-37) Red Cell Distribution Width 16.4 % (11.5-14.5) Platelet Count 94 x10^3/uL (140-400) Sodium Level 150 mmol/L (136-145) Potassium Level 3.2 mmol/L (3.5-5.1) Chloride Level 119 mmol/L (98-107) Carbon Dioxide Level 20 mmol/L (21-32) Anion Gap 11 (6-14) Blood Urea Nitrogen 37 mg/dL (7-20) Creatinine 2.4 mg/dL (0.6-1.0) Estimated GFR (Cockcroft-Gault) 20.2 BUN/Creatinine Ratio 15 (6-20) Glucose Level 160 mg/dL (70-99) Calcium Level 6.9 mg/dL (8.5-10.1) Phosphorus Level 2.3 mg/dL (2.6-4.7) Magnesium Level 2.0 mg/dL (1.8-2.4) Total Bilirubin 0.4 mg/dL (0.2-1.0) Aspartate Amino Transf (AST/SGOT) 24 U/L (15-37) Alanine Aminotransferase (ALT/SGPT) 14 U/L (14-59) Alkaline Phosphatase 92 U/L (46-116) Total Protein 5.8 g/dL (6.4-8.2) Albumin 1.5 g/dL (3.4-5.0) Albumin/Globulin Ratio 0.3 (1.0-1.7) Micro culture neg Objective Assessment Septic shock w/ lactic acidosis. UTI POA. -Recent Klebsiella & GBS in urine, 05/30. Tx cipro Acute encephalopathy Hypothermic, prior to admit GLORY on CKD Severe dehydration Downs syndrome Dementia Plan Plan of Care Zosyn urine culture to spec in lab Monitor labs f/u cultures DNR comfort care in works NOLA DUPONT MD Jul 03, 2017 10:03
[2017-07-03 11:02] VITALS: BP 97/53
[2017-07-03 15:03] VITALS: BP 109/63
[2017-07-03] MEDS: POTASSIUM CL 20MEQ IN D5W 1,000 ML IV SCH ×2 (15:10→21:23)
--- NOTE | 2017-07-03 15:46 | PDOC2 ---
PALLIATIVE CARE Palliative Care Note Palliative Care Patient more alert today. Spoke with Emanuel TRENT. He has visited today and can see improvement. Remain concerned about feeding issue. Will wait and likely repeat swallow evaluation. Continue current treatment plan. KLEBER STEVE Jul 03, 2017 15:46
[2017-07-03 19:44] VITALS: BP 125/42
[2017-07-03] MEDS: QUEtiapine 25 MG TABLET. PO SCH (21:00)
[2017-07-03 23:59] VITALS: BP 109/29
[2017-07-04] VITALS (7 sets, daily range): BP systolic 91–132; BP diastolic 32–57
[2017-07-04] MEDS: PIPERACILLIN/TAZOBACTAM 2.25 GM in IV NORMAL SALINE 50ML 50 ML IV SCH ×3 (05:54→22:57)
[2017-07-04] MEDS: POTASSIUM CL 20MEQ IN D5W 1,000 ML IV SCH ×3 (05:55→22:57)
[2017-07-04 06:24] LABS: BASO # 0.1 x10^3/uL (0.0-0.2); BASO % 1 % (0-3); EOS % 6 % (0-3); HEMATOCRIT 33.7 % (36.0-47.0); HEMOGLOBIN 11.2 g/dL (12.0-15.5); LYMPH # 1.6 x10^3/uL (1.0-4.8); LYMPH % 36 % (24-48); MEAN CORPUSCULAR HEMOGLOBIN 33 pg (25-35); MEAN CORPUSCULAR HGB CONC 33 g/dL (31-37); MEAN CORPUSCULAR VOLUME 101 fL (79-100); MONO % 8 % (0-9); NEUT % 50 % (31-73); PLATELET COUNT 88 x10^3/uL (140-400); RED BLOOD COUNT 3.35 x10^6/uL (3.50-5.40); RED CELL DISTRIBUTION WIDTH 16.7 % (11.5-14.5); WHITE BLOOD COUNT 4.5 x10^3/uL (4.0-11.0)
[2017-07-04 06:39] LABS: ALBUMIN 1.4 g/dL (3.4-5.0); CALCIUM 7.5 mg/dL (8.5-10.1); GFR 24.9; PHOSPHORUS 2.7 mg/dL (2.6-4.7); POTASSIUM 3.7 mmol/L (3.5-5.1)
[2017-07-04] MEDS: busPIRone 5 MG TABLET. PO SCH ×2 (06:48→21:00)
[2017-07-04] MEDS: PANTOPRAZOLE IV PUSH 40 MG VIAL. IVP SCH (08:13)
[2017-07-04] MEDS: NYSTATIN TOPICAL POWDER 15GM BOTTLE. TP SCH ×2 (08:21→23:04)
[2017-07-04] MEDS: LEVOTHYROXINE SODIUM 37.5 MCG in IV NORMAL SALINE 50ML 5 ML IVP SCH (09:05)
--- NOTE | 2017-07-04 09:57 | PDOC ---
Infectious Disease Note Subjective Subjective sleepy ROS ROS unable to do Vital Sign Vital Signs Vital Signs Date Time Temp Pulse Resp B/P (MAP) Pulse Ox O2 Delivery O2 Flow Rate FiO2 07/04/17 07:48 Room Air 07/04/17 07:10 97.3 54 18 91/34 (53) 98 97.3 Physical Exam PHYSICAL EXAM GENERAL: NAD, sleepy HEENT: PERRL, OC/OP NECK: Supple, no JVD, no LN LUNGS: Clear HEART: S1S2, no gallop, no murmur ABD: Soft, NT, no organomegaly, no rebound EXT: No edema, no cyanosis SPORTS BOOK WRITER: sleepy SKIN: No rash IV: ok Labs Lab Laboratory Tests Test 07/04/17 06:00 White Blood Count 4.5 x10^3/uL (4.0-11.0) Red Blood Count 3.35 x10^6/uL (3.50-5.40) Hemoglobin 11.2 g/dL (12.0-15.5) Hematocrit 33.7 % (36.0-47.0) Mean Corpuscular Volume 101 fL (79-100) Mean Corpuscular Hemoglobin 33 pg (25-35) Mean Corpuscular Hemoglobin Concent 33 g/dL (31-37) Red Cell Distribution Width 16.7 % (11.5-14.5) Platelet Count 88 x10^3/uL (140-400) Neutrophils (%) (Auto) 50 % (31-73) Lymphocytes (%) (Auto) 36 % (24-48) Monocytes (%) (Auto) 8 % (0-9) Eosinophils (%) (Auto) 6 % (0-3) Basophils (%) (Auto) 1 % (0-3) Neutrophils # (Auto) 2.2 x10^3uL (1.8-7.7) Lymphocytes # (Auto) 1.6 x10^3/uL (1.0-4.8) Monocytes # (Auto) 0.3 x10^3/uL (0.0-1.1) Eosinophils # (Auto) 0.3 x10^3/uL (0.0-0.7) Basophils # (Auto) 0.1 x10^3/uL (0.0-0.2) Sodium Level 150 mmol/L (136-145) Potassium Level 3.7 mmol/L (3.5-5.1) Chloride Level 119 mmol/L (98-107) Carbon Dioxide Level 23 mmol/L (21-32) Anion Gap 8 (6-14) Blood Urea Nitrogen 24 mg/dL (7-20) Creatinine 2.0 mg/dL (0.6-1.0) Estimated GFR (Cockcroft-Gault) 24.9 Glucose Level 128 mg/dL (70-99) Calcium Level 7.5 mg/dL (8.5-10.1) Phosphorus Level 2.7 mg/dL (2.6-4.7) Magnesium Level 1.7 mg/dL (1.8-2.4) Albumin 1.4 g/dL (3.4-5.0) Micro culture neg Objective Assessment Septic shock w/ lactic acidosis. UTI POA. -Recent Klebsiella & GBS in urine, 05/30. Tx cipro Acute encephalopathy Hypothermic, prior to admit GLORY on CKD Severe dehydration Downs syndrome Dementia Plan Plan of Care Zosyn , soon to d/c Monitor labs f/u cultures DNR comfort care in works NOLA DUPONT MD Jul 04, 2017 09:57
--- NOTE | 2017-07-04 11:01 | PDOC2 ---
PALLIATIVE CARE Palliative Care Note Palliative Care Patient sleeping. Did not awaken Spoke with Mr. Mota/MILEY. States patient had been sleeping more in the day at the [facility] and then up at night. Discussed concerns about feeding issues. Swallow to be evaluated again. Not sure patient would leave a PEG tube alone. Always pulling clothes off at [facility] and has pulled 2 IV's out here per Mr. Mota. Na 150 today. Will await input and family decisions. KLEBER STEVE Jul 04, 2017 11:01
--- NOTE | 2017-07-04 12:53 | PN ---
DATE: 07/03/2017 SUBJECTIVE: The patient is resting flat, comfortably in bed, in no apparent distress. She is definitely more awake, alert, opens her eyes, tracks and responds at times appropriately. Her serum sodium is down to 150 mEq per liter. Her white cell count is down to 5.5 and her BUN and creatinine are down to 37 and 2.4. OBJECTIVE: GENERAL: When I examined her, she was pale, cachectic, no jaundice. I noticed some thyromegaly. No jugular venous distention. No limb edema. VITAL SIGNS: Her heart rate was 60, blood pressure 97/53, temperature was 97.5, respiratory rate was 18 and oxygen saturation was 93%. HEAD, EYES, EARS, NOSE AND THROAT: Showed normocephalic, atraumatic. NECK: Supple. HEART: Showed normal first and second heart sounds with no gallop, rub or murmur. CHEST: Clear to auscultation. No crepitation or rhonchi. ABDOMEN: Distended, soft, nontender. No guarding or rigidity. No organomegaly. Hernial orifice is intact. Bowel sounds normal. NEUROLOGIC: She is definitely more awake, alert, opens eyes, tracks and responds at times appropriately. Her cranial nerves are intact. She moves extremities without difficulty, although she is mostly bedbound. Her intake over the last 24 hours was 2900, output was 1070. LABORATORY DATA: Showed a serum sodium of 150, potassium 3.2, chloride 119, bicarbonate 20, anion gap of 11, BUN 37, creatinine 2.4, estimated GFR was 20 mL per minute, her glucose was 160, calcium was 6.9, phosphorus 2.3, magnesium 2. Total bilirubin, AST, ALT, alkaline phosphatase were normal. Her total protein was 5.8, albumin 1.5. White cell count was 5500, hemoglobin 11.5, hematocrit 35, MCV 101, and platelet count 94,000. ASSESSMENT: 1. Altered mental status due to metabolic and toxic encephalopathy. 2. Hypernatremia, slowly resolving. 3. Acute and chronic kidney injury, resolving. 4. Sepsis with lactic acidosis, resolved. 5. Hypothyroidism, on IV Synthroid. 6. Meniere disease. 7. Down syndrome. 8. Intellectual disability. 9. Gastroesophageal reflux disease and Crohn disease. 10. Hypokalemia and hypernatremia. 11. Severe protein-calorie malnutrition. 12. Thrombocytopenia, likely due to Zosyn and/or heparin. PLAN: My plan is to continue with D5 with 40 mEq of potassium chloride and I will repeat her lab works tomorrow, probably hold heparin for now. SHAISTA RODRIGUEZ MD DR: IRVIN/nguyen JOB#: [id number] / [id number]
[2017-07-04] MEDS: QUEtiapine 25 MG TABLET. PO SCH (21:00)
--- NOTE | 2017-07-04 21:49 | PN ---
DATE: 07/04/2017 SUBJECTIVE: The patient resting slightly propped up in bed, in no apparent respiratory distress. She is awake, alert, opens her eyes, tracks, and yelling, although she does not interact verbally. Surprisingly, her serum sodium continues to be high at 150 despite switching her to D5W, though potassium is up to 3.7. Her BUN and creatinine are down. She apparently was seen by the speech therapy. Unfortunately, she failed her swallowing evaluation. PHYSICAL EXAMINATION: GENERAL: When I examined her, she was pale, cachectic, but not jaundiced or cyanosed, no thyromegaly. No jugular venous distention. No limb edema. VITAL SIGNS: Her heart rate was 58, blood pressure was 111/49, temperature was 97.4, respiratory rate was 16, and oxygen saturation was 97% on room air. The rest of clinical examination is unremarkable. Her intake was 1500, output was 1675. LABORATORY WORK: Showed a serum sodium 150, potassium 3.7, chloride 119, bicarbonate 23, anion gap of 8, BUN 24, creatinine 2. Estimated GFR was 25 mL per minute. Her glucose 128, calcium was 7.5, phosphorus 2.7, magnesium 1.7. Her albumin was 1.4. Her white cell count is down to 4500; hemoglobin 11; hematocrit 33; MCV 101; platelet count of 88,000. ASSESSMENT: 1. Altered mental status due to metabolic and toxic encephalopathy, resolving. 2. Hyponatremia, slowly resolving. 3. Acute kidney injury, resolving. 4. Sepsis with lactic acidosis, resolved. 5. Hypothyroidism for which on IV Synthroid. 6. Meniere disease. 7. Down syndrome. 8. Intellectual disability. 9. Gastroesophageal reflux disease and Crohn disease. 10. Hypokalemia and hypernatremia, slowly resolving. 11. Severe protein-calorie malnutrition. 12. Thrombocytopenia likely secondary to Zosyn and/or heparin. I did discontinue her heparin. Her platelets are slightly down to 88,000. 13. Dysphagia. Unfortunately, the patient failed her video swallowing evaluation. She was actually on pureed diet and [facility]ctar thickened diet at the [facility]. PLAN: My plan is to continue with the IV fluid and potassium supplement. We will repeat her lab work tomorrow and decide on further management accordingly. ____ her platelets continue to drop further, we might have to discontinue Zosyn. SHAISTA RODRIGUEZ MD DR: Amarilis JOB#: [id number] / [id number]
[2017-07-05 04:34] LABS: HEMOGLOBIN 11.6 g/dL (12.0-15.5); RED BLOOD COUNT 3.5 x10^6/uL (3.50-5.40); RED CELL DISTRIBUTION WIDTH 16.5 % (11.5-14.5); WHITE BLOOD COUNT 4.6 x10^3/uL (4.0-11.0)
[2017-07-05 04:53] LABS: ALBUMIN 1.4 g/dL (3.4-5.0); CALCIUM 7.9 mg/dL (8.5-10.1); CREATININE 1.8 mg/dL (0.6-1.0); GFR 28.2; PHOSPHORUS 2.6 mg/dL (2.6-4.7); POTASSIUM 3.9 mmol/L (3.5-5.1)
[2017-07-05] MEDS: PIPERACILLIN/TAZOBACTAM 2.25 GM in IV NORMAL SALINE 50ML 50 ML IV SCH (06:14)
[2017-07-05 07:00] VITALS: BP 95/56
[2017-07-05] MEDS: POTASSIUM CL 20MEQ IN D5W 1,000 ML IV SCH (08:52)
[2017-07-05] MEDS: PANTOPRAZOLE IV PUSH 40 MG VIAL. IVP SCH (08:52)
[2017-07-05] MEDS: NYSTATIN TOPICAL POWDER 15GM BOTTLE. TP SCH (08:53)
[2017-07-05] MEDS: CETIRIZINE HCL 10 MG TABLET. PO SCH (08:53)
[2017-07-05] MEDS: ALLOPURINOL 100 MG TABLET. PO SCH (08:53)
[2017-07-05] MEDS: DONEPEZIL HCL 5 MG TABLET. PO SCH (08:53)
[2017-07-05] MEDS: busPIRone 5 MG TABLET. PO SCH (08:53)
[2017-07-05] MEDS: LEVOTHYROXINE SODIUM 37.5 MCG in IV NORMAL SALINE 50ML 5 ML IVP SCH (09:05)
[2017-07-05 11:00] VITALS: BP 102/59
--- NOTE | 2017-07-05 11:08 | PDOC ---
Infectious Disease Note Subjective Subjective sleepy ROS ROS unable to do Vital Sign Vital Signs Vital Signs Date Time Temp Pulse Resp B/P (MAP) Pulse Ox O2 Delivery O2 Flow Rate FiO2 07/05/17 07:50 Room Air 2.0 07/05/17 07:00 57 20 95/56 (69) 97 07/04/17 23:10 97.9 97.9 Physical Exam PHYSICAL EXAM GENERAL: NAD, HEENT: PERRL, OC/OP NECK: Supple, no JVD, no LN LUNGS: Clear HEART: S1S2, no gallop, no murmur ABD: Soft, NT, no organomegaly, no rebound EXT: No edema, no cyanosis HUB LEAD: sleepy SKIN: No rash IV: ok Labs Lab Laboratory Tests Test 07/05/17 04:30 White Blood Count 4.6 x10^3/uL (4.0-11.0) Red Blood Count 3.50 x10^6/uL (3.50-5.40) Hemoglobin 11.6 g/dL (12.0-15.5) Hematocrit 35.0 % (36.0-47.0) Mean Corpuscular Volume 100 fL (79-100) Mean Corpuscular Hemoglobin 33 pg (25-35) Mean Corpuscular Hemoglobin Concent 33 g/dL (31-37) Red Cell Distribution Width 16.5 % (11.5-14.5) Platelet Count 90 x10^3/uL (140-400) Sodium Level 147 mmol/L (136-145) Potassium Level 3.9 mmol/L (3.5-5.1) Chloride Level 116 mmol/L (98-107) Carbon Dioxide Level 25 mmol/L (21-32) Anion Gap 6 (6-14) Blood Urea Nitrogen 15 mg/dL (7-20) Creatinine 1.8 mg/dL (0.6-1.0) Estimated GFR (Cockcroft-Gault) 28.2 Glucose Level 129 mg/dL (70-99) Calcium Level 7.9 mg/dL (8.5-10.1) Phosphorus Level 2.6 mg/dL (2.6-4.7) Magnesium Level 1.6 mg/dL (1.8-2.4) Albumin 1.4 g/dL (3.4-5.0) Micro culture neg Objective Assessment Septic shock w/ lactic acidosis. UTI POA. -Recent Klebsiella & GBS in urine, 05/30. Tx cipro Acute encephalopathy Hypothermic, prior to admit GLORY on CKD Severe dehydration Downs syndrome Dementia Plan Plan of Care d/c Zosyn , Monitor labs f/u cultures DNR comfort care NOLA DUPONT MD Jul 05, 2017 11:08
--- NOTE | 2017-07-05 11:50 | DS ---
DATE OF DISCHARGE: HOSPITAL COURSE: The patient is a 67-year-old female patient who was admitted with altered mental status, severe sepsis due to urinary tract infection, hypertension, acute on chronic kidney injury and severe hypernatremia. She was treated with IV fluid and Levophed as well as IV antibiotic. She was started empirically on IV Zosyn and her urine culture surprisingly did not grow any organisms as well as her blood culture. She did respond well to IV Zosyn and her white cell count came down from 18,000-4600. Her kidney function also steadily improved. Her creatinine came down from 5.7-1.8. Serum sodium came down from 171-147. I have had a lengthy discussion with her DPOA and she continued to be very lethargic and encephalopathic. A decision was made to discharge her to go on hospice care. PHYSICAL EXAMINATION: GENERAL: When I saw her today, she was resting slightly propped up in bed, sleeping comfortably in no apparent distress. She continued to be encephalopathic, pale, but not cachectic, but not jaundiced, cyanosis, or thyromegaly. No jugular venous distention. No lower limb edema. VITAL SIGNS: Her heart rate was 71, blood pressure was 195/56, temperature was 97.9, respiratory rate was 20, and oxygen saturation was 97% on 2 liters of oxygen. The rest of examination is stable. Her intake over the last 24 hours was incompletely recorded. LABORATORY DATA: Her lab work this morning showed a serum sodium 147, potassium 3.9, chloride 116, bicarbonate 25, anion gap of 6, BUN 15, creatinine 1.8, estimated GFR was 28 mL per minute. Her glucose 129, calcium was 7.9, phosphorus 2.6, magnesium was 1.6, albumin was 1.4. White cell count was 4600, hemoglobin 11.6, hematocrit 35, MCV 100, and platelet count of 90,000. PLAN: She will be discharged. She has failed her video swallowing evaluation. My plan is to discontinue all her medications and start her on Roxanol 20 mg per mL solution to give 0.25-1 mL that is 5-20 mg p.o. sublingually every 2 hours as needed for shortness of breath and pain and Ativan 2 mg per mL solution to give 0.25-1 mL that is 0.5-2 mg per mL every 2 hours as needed for anxiety. FINAL DISCHARGE DIAGNOSES: Altered mental status due to metabolic toxic encephalopathy, hypernatremia, acute on chronic kidney injury, hypothyroidism, Meniere's disease, Down syndrome, intellectual disability, Crohn's disease, gastroesophageal reflux disease, and severe protein-calorie malnutrition. Her serum albumin is only 1.4 g/dL. SHAISTA RODRIGUEZ MD DR: IRVIN/nguyen JOB#: [id number] / [id number]
== END 2017-07-05 13:35 | disposition hospice, home (50) | DRG 871 ==
LOC: ER 09:46 → 1 WEST ICU 11:30 → 6 SOUTH 07-02 16:25
PROVIDERS: ADMIT Internal Medicine; ATTEND Internal Medicine
DX: A41.9 Sepsis, unspecified organism (principal); E43 Unspecified severe protein-calorie malnutrition; R65.21 Severe sepsis with septic shock; N17.9 Acute kidney failure, unspecified; G92 Toxic encephalopathy; E87.0 Hyperosmolality and hypernatremia; D69.59 Other secondary thrombocytopenia; N18.4 Chronic kidney disease, stage 4 (severe); F03.90 Unspecified dementia, unspecified severity, without behavioral disturbance, psychotic disturbance, mood disturbance, and anxiety; K50.90 Crohn's disease, unspecified, without complications; Z68.1 Body mass index [BMI] 19.9 or less, adult; N12 Tubulo-interstitial nephritis, not specified as acute or chronic; E86.0 Dehydration; D64.9 Anemia, unspecified; E03.9 Hypothyroidism, unspecified; E16.2 Hypoglycemia, unspecified; E87.6 Hypokalemia; F79 Unspecified intellectual disabilities; H81.09 Meniere's disease, unspecified ear; I12.9 Hypertensive chronic kidney disease with stage 1 through stage 4 chronic kidney disease, or unspecified chronic kidney disease; K21.9 Gastro-esophageal reflux disease without esophagitis; M10.9 Gout, unspecified; M81.0 Age-related osteoporosis without current pathological fracture; Q90.9 Down syndrome, unspecified; M19.90 Unspecified osteoarthritis, unspecified site; Z88.8 Allergy status to other drugs, medicaments and biological substances; Z91.011 Allergy to milk products; Z51.5 Encounter for palliative care; Z66 Do not resuscitate; B96.1 Klebsiella pneumoniae [K. pneumoniae] as the cause of diseases classified elsewhere; R13.10 Dysphagia, unspecified
CPT/HCPCS: 36415; 36600; 70450; 71010; 76770; 80048; 80053; 80069; 80076; 80307; 81001; 82140; 82550; 82553; 82805; 82962; 83605; 83690; 83735; 83880; 84100; 84145; 84295; 84443; 84484; 84550; 85007; 85025; 85027; 85610; 87040; 87086; 87641; 93005; 96360; 96361; C9113; J2060; J2543; J7030; J7042; 92610; 99285-25; G0479